=== PATIENT | female | born 1995 | race Caucasian/White ===

== ENCOUNTER 2017-01-04 23:28 | Emergency (ER) | payer OTHER ==
--- OUTSIDE RECORDS SUMMARY | 2017-01-05 00:07 | XMS REPORT | Continuity of Care Document ---
:1995 Author Organization [facility] ([facility]) Address [address] [place] [address] Phone [phone] Care Team Providers Name Role Phone Rachana Ba Primary Care Provider [phone] Source Comments This disclosure is being made pursuant to the Care Everywhere program, applicable federal and state laws, and may not contain all informaitonavailable regarding this patient.[facility] ([facility]) Active Allergies and Adverse Reactions Allergen Noted Date Severity Reactions Comments Bee Stings 11/08/2016 OTHER swelling Cephalexin 05/01/2016 Medium OTHER Severe heartburn Cephalexin 11/08/2016 OTHER Heartburn/Reflux Current Medications Prescription Sig. Disp. Refills Start Date End Date Status multivitamin Take 1 tablet by Active with minerals 27-0.8 mg mouth daily. tablet acetaminophen-codeine Take 1 tablet by Active 300-30 mg per tablet mouth every 4 hours as needed. PSYLLIUM SEED (WITH Take by mouth 2 Active SUGAR) (METAMUCIL PO) times daily as needed. ondansetron 4 mg Take 1 tablet (4 30 tablet 0 05/02/2016 Active disintegrating tablet mg total) by mouth every 8 hours as needed for Nausea/Vomiting. nitrofurantoin One capsule by 30 capsule 5 11/12/2016 Active macrocrystal mouth daily. (MACRODANTIN) 100 mg capsule multivitamin Take 1 tablet by Active with minerals 27-0.8 mg mouth daily. tablet ferrous sulfate 325 mg Take 325 mg by Active (65 mg iron) tablet mouth daily. fluticasone 50 Use 2 Sprays Active mcg/Actuation nasal into both spray nostrils 2 times daily. FLUoxetine 20 mg Take 20 mg by Active capsule mouth daily. metroNIDAZOLE 500 mg Take 500 mg by Active tablet mouth 2 times daily. Active Problems Problem Noted Date labor in third trimester 11/08/2016 Cholecystitis in , s/p lap archie 11/08/2016 Elevated LFTs 05/01/2016 Nausea and vomiting 05/01/2016 First trimester 05/01/2016 Currently Estimated Date of Delivery Comments Yes 01/07/2017 Based on Last Menstrual Period Most Recent Encounters Date Type Specialty Providers Description 11/12/2016 Refill Gynecology Sowmya, Dx: Recurrent UTI Kadie Bull MD (Primary Dx) 11/11/2016 Telephone Gynecology Savanah Joseph MD Chief Comp: Need Prior Authorization 11/10/2016 Hospital Encounter General Care Inpatient - Adult 11/08/2016 Hospital Encounter Pathology Carlos, Bahman Dx: Warm reactive MD Remberto antibody (Primary Dx) 11/08/2016 - Hospital Encounter General Care Su, Radha Khan MD Dx: labor in 11/10/2016 Inpatient - Adult Wei Ledesma third trimester MD Erin without delivery Karen Valle, (Primary Dx) 11/08/2016 Anesthesia Event General Care Javier Morrison, Inpatient - Adult Social History Tobacco Use Types Packs/Day Years Used Date Former Smoker Cigarettes Quit: 02/24/2016 Smokeless Tobacco: Never Used Alcohol Use Drinks/Week oz/Week Comments No Occasional Last Filed Vital Signs Vital Sign Reading Time Taken Blood Pressure 123/66 11/10/2016 8:47 AM [employer] Pulse 99 11/10/2016 8:47 AM [employer] Temperature 37.1 C (98.8 F) 11/10/2016 8:47 AM [employer] Respiratory Rate 16 11/10/2016 8:47 AM [employer] Height 1.575 m (5' 2") 11/08/2016 12:20 PM [employer] Weight 66.679 kg (147 lb) 11/08/2016 12:20 PM [employer] Body Mass Index 26.88 11/08/2016 12:20 PM [employer] Oxygen Saturation 96% 11/10/2016 8:47 AM [employer] Plan of Care Health Maintenance Due Date Last Done Comments Hepatitis B Vaccine (1 of 3 - Primary Series) 1993 HPV Vaccine (1 of 3 - Female/Unknown 3 Dose Series) 2004 Tdap Vaccine 2004 Cervical Cancer Screening 2011 Lipid Disorder Screening 2011 MMR Vaccine 2011 Td Vaccine 2011 Influenza Vaccine: Seasonal (#1) 06/21/2016 Results from Last 3 Months OB ULTRASOUND (LDR) (11/08/2016 4:02 PM) Narrative Obstetric Ultrasound Report Detailed Survey Ref[facility], [address] [place] [address] PATIENT INFORMATION: Name: MELI WILLIAMSON MR#: [id number] Age:21 y/oExam Date: 11/08/2016 :1995Visit #: 1 LMP:Not Available Location:Labor and Delivery # Fetuses: 1 INDICATION:PTL and vaginal bleeding, assess growth and anatomy. DATING: Assigned GA GA by LMPGA by US (CHRISTIANO)CHRISTIANO NA 31 2/7 wks 31 3/7 wks2/17/17 BIOMETRY: BPD: 81.2 mm32 4/7 wksHC:288.5 mm 31 5/7 wks(31%) (65%) Femur: 59.7 mm31 1/7 wksAC:274.7 mm 31 4/7 wks(49%) (41%) EFW: 1780 gms3 lbs 15 oz (57%) Lat Ventricles: 3.95 mmCisterna Magna: 8.84 mm Nasal Bone: PresentFetal Heart Rate: 130 bpm FL/AC:0.22 HL/BPD: 0.63 FL/BPD: 0.73 Humerus:51.4 mm30 0 (28%) PRESENTATION/CORD/PLACENTA/FLUID/CERVIX: Presentation: Cephalic Umbilical Cord: 3 Vessel Cord.Normal insertion into the placenta. Placenta: Anterior.There Is No Evidence Of Placenta Previa. Amniotic Fluid: Maximum Vertical Pocket=55 mm.Subjective AF Volume : Normal. (LTJ=978 mm) ANATOMICAL SURVEY: Normal ------ Lateral Ventricles Cerebellum Cisterna Magna Profile Palate Nose Lips Cervical Spine Thoracic Spine Lumbar Spine Sacrum Four Chamber View RVOT LVOT Aortic ArchCardiac Gila Cardiac Position Heart Rate Ductal ArchIVC SVC Diaphragm Ventral Wall Stomach Kidney - LeftKidney - Right Bladder Forearm - Left Forearm - RightLower Leg - Left Lower Leg - Right Suboptimal Hand - LeftHand - Right Foot - LeftFoot - Right Abnormal -------- None identified TARGETED CARDIAC: Ductal Arch: Normal IVC: Normal SVC: Normal MAIL MESSENGER FINDINGS: Ovaries:Left:Not Seen Right: Normal EFW Summary Table Exam DateFetus #EFW Percentile ------ - 11/08/16 [id number] % AMNIOTIC FLUID VOLUME: NORMALTotal KAPIL: 197 mm.Subjective AF Volume: Normal. Maximum Vertical Pocket:55 mm CERVIX: Suboptimal visualization COMMENTS: I attest to having personally viewed the images and my comments and impression are as follows: The exam was limited due to the late gestational age. IUP consistent with given CHRISTIANO. Within the limits of ultrasound, no structural anomalies were seen. Appropriate amniotic fluid. Suboptimal views due to late gestational age. Devon Sheppard MD ([id number]) Doctor Of Optometry: Jennifer Rodarte RDMS,RVT Procedure Note Miguel, Incoming Imaging Results - TueNov 10, 2016 11:42 AM [employer] Obstetric Ultrasound Report Detailed Survey Referral from: Dr. Ashly Cooper [facility] Department of Obstetrics &Gynecology [facility], [address] [place] [address] PATIENT INFORMATION: Name: MELI WILLIAMSON MR#: [id number] Age: 21 y/o Exam Date: 11/08/2016 : 1995 Visit #: 1 LMP: Not Available Location: Labor and Delivery # Fetuses: 1 INDICATION: PTL and vaginal bleeding, assess growth and anatomy. DATING: Assigned GA GA by LMP GA by US (CHRISTIANO) CHRISTIANO NA 31 2/7 wks 31 3/7 wks 01/07/17 BIOMETRY: BPD: 81.2 mm 32 4/7 wks HC: 288.5 mm 31 5/7 wks(31%) (65%) Femur: 59.7 mm 31 1/7 wks AC: 274.7 mm 31 4/7 wks(49%) (41%) EFW: 1780 gms 3 lbs 15 oz(57%) Lat Ventricles: 3.95 mm Cisterna Magna: 8.84 mm Nasal Bone: Present Heart Rate: 130 bpm FL/AC: 0.22 HL/BPD: 0.63 FL/BPD: 0.73 Humerus: 51.4 mm 300 (28%) PRESENTATION/CORD/PLACENTA/FLUID/CERVIX: Presentation: Cephalic Umbilical Cord: 3 Vessel Cord. Normal insertion into the placenta. Placenta: Anterior. There Is No Evidence Of Placenta Previa. Amniotic Fluid: Maximum Vertical Pocket=55 mm. Subjective AFVolume: Normal. (ZLC=929 mm) ANATOMICAL SURVEY: Normal ------ Lateral Ventricles Cerebellum Cisterna Magna Profile Palate Nose Lips Cervical Spine Thoracic Spine Lumbar Spine Sacrum Four Chamber View RVOT LVOT Aortic Arch Cardiac Gila Cardiac Position Heart Rate Ductal Arch IVC SVC Diaphragm Ventral Wall Stomach Kidney - Left Kidney - Right Bladder Forearm - Left Forearm - Right Lower Leg - Left Lower Leg - Right Suboptimal Hand - Left Hand - Right Foot - Left Foot - Right Abnormal -------- None identified TARGETED CARDIAC: Ductal Arch: Normal IVC: Normal SVC: Normal MAIL MESSENGER FINDINGS: Ovaries: Left: Not Seen Right: Normal EFW Summary Table Exam Date Fetus # EFW Percentile --------- ------- ---- 11/08/16 1 1780 57 % AMNIOTIC FLUID VOLUME: NORMAL Total KAPIL: 197 mm. Subjective AF Volume: Normal. Maximum Vertical Pocket: 55 mm CERVIX: Suboptimal visualization COMMENTS: I attest to having personally viewed the images and my comments and impression are as follows: The exam was limited due to the late gestational age. IUP consistent with given CHRISTIANO. Within the limits of ultrasound, no structural anomalies were seen. Appropriate amniotic fluid. Suboptimal views due to late gestational age. Devon Sheppard MD ([id number]) Doctor Of Optometry: Jennifer Rodarte RDIL,RVT CREATININE (11/08/2016 12:11 PM) Component Value Range Creatinine 0.6Comment: 0.5-1.0 mg/dL Creatinine switched to enzymatic method on 03/30/2011.GFR equation switched to IDMS-traceable MDRD equation on 03/30/2011. Calculated GFR values are not valid in clinical settings where serum creatinine is changing. Calculated GFR >90 >60 mL/min/1.73 m2 Specimen Blood FIBRINOGEN (11/08/2016 12:11 PM) Component Value Range Fibrinogen 576(H) 180-400 mg/dL Specimen Blood PTT (PARTIAL THROMBOPLASTIN TIME) (11/08/2016 12:11 PM) Component Value Range PTT 21(L) 22-31 secs Specimen Blood PT/INR (PROTHROMBIN TIME/INR) VENOUS (11/08/2016 12:11 PM) Component Value Range PT (Prothrombin Time) 9 9-12 secs INR 0.9 <4.0 Specimen Blood ANTIBODY PANEL INTERPRETATION (11/08/2016 11:44 AM) Component Value Range Antibody Identification Anti-D due to RhIg Specimen Blood TYPE AND SCREEN (BLOOD TYPE(ABORH) AND RBC ANTIBODY SCREEN) (11/08/2016 11:44 AM ) Component Value Range ABORH O Negative Specimen Expiration Date 2016-11-11 Antibody Screen Positive Specimen Blood GROUP B STREPTOCOCCUS PCR (11/08/2016 11:42 AM) Component Value Range GRPBPCR Negative Negative Specimen Vaginal/Rectal Narrative Test methodology:Nucleic acid amplification; illumigene Assay ([employer]) The performance characteristics of this test were determined by the [facility].It has not been cleared or approved by the U.S. Food and DrugAdministration (FDA). The FDA has determined that such clearance or approval is not necessary.This test is for clinical purposes.It should not be regarded as investigational or for research. The laboratory is certified under the Clinical Laboratory Improvement Amendments of 1988 (CLIA) as qualified to perform high complexity clinical laboratory testing. NEISSERIA GONORRHOEAE PCR (11/08/2016 11:42 AM) Component Value Range Gonorrhea PCR Negative Negative Specimen Other - Urine, Midstream clean catch Narrative Test methodology:PCR amplification; CT/NG Assay ([employer]) CHLAMYDIA TRACHOMATIS DETECTION BY PCR (11/08/2016 11:42 AM) Component Value Range Chlamydia Trach PCR Negative Negative Specimen Other - Urine, Midstream clean catch Narrative Test methodology:PCR amplification; CT/NG Assay ([employer]) CBC (COMPLETE BLOOD COUNT) (11/08/2016 11:33 AM) Component Value Range WBC Count 11.1(H) 3.7-10.5 K/MM3 RBC Count 3.43(L) 4.00-5.20 M/MM3 Hemoglobin 10.9(L) 11.9-15.5 g/dL Hematocrit 32(L) 35-47 % MCV (Mean Corpuscular Volume) 94 82-99 FL MCH (Mean Corpuscular Hemoglobin) 32 25-35 PG MCHC (Mean Corpuscular Hemoglobin Concentration) 34 32-36 % Platelet Count 339 150-400 K/MM3 MPV (Mean Platelet Volume) 11.0 9.4-12.3 FL RBC Dist Width-STD 44.9 36.4-46.3 FL RBC Distrib Width 13.2 9.0-14.5 % Nucleated RBC 0 /100 WBC Specimen Whole Blood MICROSCOPIC URINALYSIS (11/08/2016 11:32 AM) Component Value Range White Blood Cells, Urine 2 0-5 /HPF Red Blood Cells, Urine <1 0-2 /HPF Mucous-Urine Rare None, Rare Specimen Urine URINALYSIS WITH REFLEX CULTURE (11/08/2016 11:32 AM) Component Value Range Color, Urine Yellow Straw, Pale Yellow, Yellow, Clear, None Clarity, Urine Clear Clear pH, Urine 7.0 <9.0 Spec [place], Urine 1.010 1.000-1.030 Glucose, Urine Negative Negative Blood, Urine 3+(A) Negative Ketones, Urine 1+(A) Negative Protein, Urine Negative Negative Urobilinogen, Urine Normal Normal Bilirubin, Urine Negative Negative Leukocyte Esterase, Urine Trace(A) Negative Nitrite, Urine Negative Negative Specimen Urine DRUGS OF ABUSE - URINE (11/08/2016 11:32 AM) Component Value Range Amphetamines, Urine NegativeComment: Negative Test cut-off: 1000 ng/mL for d-methamphetamine. Benzodiazepine, Urine NegativeComment: Negative Test cut-off:100 ng/mL Cocaine, Urine NegativeComment: Negative Test cut-off:300 ng/mL Opiate, Urine NegativeComment: Negative Test cut-off:300 ng/mL for morphine Oxycodone, Urine NegativeComment: Negative Test cut-off:300 ng/mL Amphetamines assay cross-reacts well with amphetamine and methamphetamine, as well as the "ux ui designer" amphetamines MDMA ("Ecstasy"), MDA, MDEA ("Gracie"), and MBDB. Labetalol may also produce false positi ves due to cross-reactivity of a metabolite.The amphetamines assay has little or no cross-reactivity with ephedrine, pseudoephedrine, phentermine, and methylphenidate. Opiates assay has low cross-reac tivity for buprenorphine, fentanyl, meperidine, methadone, oxycodone, and propoxyphene (all have cut-offs greater than 75,000 ng/mL). Please see Laboratory Services Handbook (http://healthcare.[facility]/path_ handbook.index.html) for more detailed information on assay cross-reactivity. Drug of abuse screening tests are to be used for medical purposes only and not for non-medical purposes (e.g., employee, phys ther, or forensic testing). Specimen Urine URINALYSIS WITH REFLEXED CULTURE AND MICROSCOPIC EXAM (11/08/2016 11:32 AM) Specimen Culture - Urine, Midstream clean catch Narrative The following orders were created for panel order URINALYSIS WITH REFLEXED CULTURE AND MICROSCOPIC EXAM. Procedure Abnormality Status --------- ------ URINALYSIS WITH REFLEX C...[[id number]]AbnormalFinal result MICROSCOPIC URINALYSIS[[id number]] Normal Final result URINE CULTURE, REFLEXED[[id number]]Normal Final result Please view results for these tests on the individual orders. URINE CULTURE, REFLEXED (11/08/2016 11:32 AM) Component Value Range Quantitative Culture No growth at 11/999 dilution Specimen Culture - Urine, Midstream clean catch
--- OUTSIDE RECORDS SUMMARY | 2017-01-05 00:08 | XMS REPORT | Summary of Care ---
:1995 Author Organization [facility] Address [address] [place] [address] Care Team Providers Name Role Phone Ashly Cooper Primary Care Physician Encounter Date(s): 12/10/16 - 12/10/16 [facility], [address] [place], [place] [address] Discharge Diagnosis: 36 weeks gestation of Discharge Disposition: Discharged to Home or Self Care Attending Physician: Ashly Cooper MD Referring Physician: Ashly Cooper MD Vital Signs Most recent to oldest [Reference Range]: 1 Peripheral Pulse Rate [60-100 bpm] 75 bpm (12/10/16 9:51 AM) Blood Pressure [90-130/60-90 mmHg] 101/64mmHg (12/10/16 9:51 AM) Mean Arterial Pressure, Cuff 76 mmHg (12/10/16 9:51 AM) Weight Dosing 65.80 kg1 (12/10/16 9:52 AM) Weight Measured 65.8 kg (12/10/16 9:51 AM) 1Result Comment: This result was because the dosing weight was either not entered or it is>30 days old. This result is based off: Weight Measured December 10, 2016 09:51:00 [employer] by Liat Valiente CMA Problem List Condition Effective Dates Status Health Status Informant Anxiety disorder(Confirmed) Active Kidney stones(Confirmed) Active (Confirmed) 04/02/16 Active (Confirmed) < 02/2016 Resolved Allergies, Adverse Reactions, Alerts Substance Reaction Severity Status Bee Stings swelling/edema Active cephalexin1 Acid reflux Active 1Does fine with PCN and amoxicillin Medications Augmentin 875 mg-125 mg oral tablet 875 mg, Oral, q12hr interval, # 20 tab(s), 0 Refill(s), Start Date: 11/16/16 17: 08:00 [facility] [employer] [facility], Pharmacy: [facility] [id number] Start Date: 11/16/16 Stop Date: 11/27/16 Status: CompletedEpiPen 2-Junior 0.3 mg injectable kit 0.3 mg, IM, ONETIME, # 1 kit(s), 0 Refill(s), Start Date: 05/18/16 13:16:00 CDT , Pharmacy: [facility] [id number] Start Date: 05/18/16 Status: Orderedferrous sulfate 325 mg (65 mg elemental iron) oral delayed release tablet 1 tab(s), Oral, Daily, # 30 tab(s), 8 Refill(s), Start Date: 10/21/16 13:43:00 [facility] [employer], Pharmacy: [facility] [id number] Start Date: 10/21/16 Status: OrderedFlagyl 500 mg oral tablet 1 tab(s), Oral, q12hr, # 14 tab(s), 0 Refill(s), Start Date: 11/05/16 11:10:00 [employer] [employer], Pharmacy: [facility] [id number] Start Date: 11/05/16 Stop Date: 11/16/16 Status: CompletedFlonase 50 mcg/inh nasal spray 2 spray(s), Nasal, BID, # 16 gm, 0 Refill(s), Start Date: 10/26/16 16:24:00 [employer] [employer] , Pharmacy: [facility] [id number] Start Date: 10/26/16 Stop Date: 11/16/16 Status: CompletedFLUoxetine 30 mg, Oral, HS, 0 Refill(s), Start Date: 04/14/16 13:07:00 CDT Start Date: 04/14/16 Stop Date: 05/18/16 Status: DiscontinuedFLUoxetine 20 mg oral tablet 1 tab(s), Oral, Daily, # 30 tab(s), 2 Refill(s), Start Date: 08/25/16 14:00:00 CDT, Pharmacy: [facility] [id number] Start Date: 08/25/16 Stop Date: 12/03/16 Status: CompletedFLUoxetine 20 mg oral tablet 1 tab(s), Oral, Daily, # 30 tab(s), 2 Refill(s), Start Date: 12/03/16 10:33:18 [facility] [employer], Pharmacy: [facility] [id number] Start Date: 12/03/16 Status: Orderedloratadine 10 mg oral tablet 1 tab(s), Oral, Daily, # 10 tab(s), 0 Refill(s), Start Date: 10/26/16 16:24:00 [facility] [employer], Pharmacy: [facility] [id number] Start Date: 10/26/16 Stop Date: 11/16/16 Status: CompletedMacrobid 100 mg oral capsule 1 cap(s), Oral, BID, X 5 days, # 10 cap(s), 0 Refill(s), Start Date: 06/03/16 23 :02:00 CDT Start Date: 06/03/16 Stop Date: 06/08/16 Status: CompletedMacrobid 100 mg oral capsule 1 cap(s), Oral, BID, # 14 cap(s), 0 Refill(s), Start Date: 07/02/16 15:50:00 CDT , Pharmacy: [facility] [id number] Start Date: 07/02/16 Stop Date: 07/16/16 Status: DiscontinuedNIFEdipine 10 mg oral capsule 1 cap(s), Oral, q4hr, PRN other (see comment), # 90 cap(s), 0 Refill(s), Start Date: 11/16/16 17:08:00 [facility] [employer], Pharmacy: [facility] [id number] Start Date: 11/16/16 Status: OrderedPercocet 7.5/325 oral tablet 1 tab(s), Oral, q4hr, PRN for pain, # 16 tab(s), 0 Refill(s), Start Date: 15:02:00 CDT Start Date: 02/03/16 Stop Date: 02/05/16 Status: CompletedPrenatal Multivitamins 1 TAB, Oral, Daily, 0 Refill(s), Start Date: 04/27/16 10:54:00 CDT Start Date: 04/27/16 Status: OrderedTerazol 3 vaginal cream 1 rosario, Vaginal, HS, X 3 days, # 20 gm, 0 Refill(s), Start Date: 10/08/16 10:49: 00 [facility] [employer] [facility], Pharmacy: [facility] [id number] Start Date: 10/08/16 Stop Date: 10/11/16 Status: CompletedtraZODone 50 mg oral tablet 1 tab(s), Oral, HS, PRN for insomnia, # 30 tab(s), 0 Refill(s), Start Date: 13:07:00 CDT Start Date: 04/14/16 Stop Date: 05/18/16 Status: DiscontinuedTylenol with Codeine #3 oral tablet 1 tab(s), Oral, q4hr interval, PRN pain moderate 4-7, X 5 days, # 30 tab(s), 0 Refill(s), Start Date: 04/27/16 14:48:00 CDT, Pharmacy: [facility] [id number] Start Date: 04/27/16 Stop Date: 05/02/16 Status: CompletedZantac 150 oral tablet 1 tab(s), Oral, BID, # 60 tab(s), 1 Refill(s), Start Date: 11/05/16 10:53:00 [employer] , Pharmacy: [facility] [id number] Start Date: 11/05/16 Status: Ordered Results No data available for this section Immunizations Given and Recorded Vaccine Date Status Refusal Reason tetanus/diphth/pertuss (Tdap) adult/adol 10/08/16 Given influenza virus vaccine, inactivated 09/10/16 Given Procedures Procedure Date Related Diagnosis Body Site Cholecystectomy Laparoscopic1 04/27/16 Tonsillectomy and adenoidectomy 2009 1auto-populated from documented surgical case Social History No data available for this section Assessment and Plan No data available for this section
--- OUTSIDE RECORDS SUMMARY | 2017-01-05 00:08 | XMS REPORT | Summary of Care ---
:1995 Author Organization [facility] Address [address] [place] [address]- Care Team Providers Name Role Phone MarcianobiancaRachana Primary Care Physician Encounter Date(s): 04/13/16 - 04/13/[address] [address] Final: Other cholelithiasis without obstruction Final: Other specified diseases of biliary tract Discharge Disposition: 01 Discharged to Home or Self Care Attending Physician: Dylan Ellison DO Admitting Physician: Dylan Ellison DO Vital Signs No data available for this section Problem List Condition Effective Dates Status Health Status Informant Anxiety disorder(Confirmed) Active Kidney stones(Confirmed) Active Allergies, Adverse Reactions, Alerts Substance Reaction Severity Status cephalexin Acid reflux Active Medications FLUoxetine 30 mg, Oral, HS, 0 Refill(s), Start Date: 04/14/16 13:07:00 CDT Start Date: 04/14/16 Status: OrderedPercocet 7.5/325 oral tablet 1 tab(s), Oral, q4hr, PRN for pain, # 16 tab(s), 0 Refill(s), Start Date: 15:02:00 CDT Start Date: 02/03/16 Stop Date: 02/05/16 Status: CompletedPrenatal Multivitamins 1 TAB, Oral, Daily, 0 Refill(s), Start Date: 04/27/16 10:54:00 CDT Start Date: 04/27/16 Status: OrderedtraZODone 50 mg oral tablet 1 tab(s), Oral, HS, PRN for insomnia, # 30 tab(s), 0 Refill(s), Start Date: 13:07:00 CDT Start Date: 04/14/16 Status: OrderedTylenol with Codeine #3 oral tablet 1 tab(s), Oral, q4hr interval, PRN pain moderate 4-7, X 5 days, # 30 tab(s), 0 Refill(s), Start Date: 04/27/16 14:48:00 CDT, Pharmacy: [facility] [id number] Start Date: 04/27/16 Stop Date: 05/02/16 Status: Completed Results No data available for this section Immunizations No data available for this section Procedures Procedure Date Related Diagnosis Body Site Cholecystectomy Laparoscopic1 04/27/16 Tonsillectomy and adenoidectomy 2009 1auto-populated from documented surgical case Social History No data available for this section Assessment and Plan No data available for this section
--- OUTSIDE RECORDS SUMMARY | 2017-01-05 00:08 | XMS REPORT | Summary of Care ---
:1995 Author Organization [facility] Address [address] [place] [phone]- Care Team Providers Name Role Phone Ashly Cooper Primary Care Physician Encounter Date(s): 12/11/16 - 12/12/[address] [address]- [facility] Discharge Disposition: 01 Discharged to Home or Self Care Attending Physician: Nakita Marks MD Vital Signs Most recent to oldest 1 2 3 [Reference Range]: Temperature Temporal Artery 36.8 DegC [36-38 DegC] (12/11/16 11:00 PM) Heart Rate Monitored [60-100 83 bpm 56 bpm 80 bpm bpm] (12/12/16 6:00 AM) *LOW* (12/11/16 11:00 PM) (12/12/16 1:50 AM) Respiratory Rate [12-20 16 br/min 18 br/min br/min] (12/12/16 1:08 AM) (12/11/16 11:00 PM) SpO2 98 % (12/11/16 11:00 PM) Blood Pressure [90-130/60-90 104/67mmHg 110/74mmHg 126/76mmHg mmHg] (12/12/16 6:00 AM) (12/12/16 1:50 AM) (12/11/16 11:00 PM) Mean Arterial Pressure, Cuff 79 mmHg 86 mmHg 93 mmHg (12/12/16 6:00 AM) (12/12/16 1:50 AM) (12/11/16 11:00 PM) Problem List Condition Effective Dates Status Health [...] 0 Refill(s), Start Date: 11/16/16 17: 08:00 MANAGER CLINICAL, Pharmacy: [facility] [id number] Start Date: 11/16/16 Stop Date: 11/27/16 Status: CompletedEpiPen 2-Junior 0.3 mg injectable kit 0.3 mg, IM, ONETIME, # 1 kit(s), 0 Refill(s), Start Date: 05/18/16 13:16:00 CDT , Pharmacy: [facility] [id number] Start Date: 05/18/16 Status: Orderedferrous sulfate 325 mg (65 mg elemental iron) oral delayed release tablet 1 tab(s), Oral, Daily, # 30 tab(s), 8 Refill(s), Start Date: 10/21/16 13:43:00 MANAGER CLINICAL, Pharmacy: [facility] [id number] Start Date: 10/21/16 Status: OrderedFlagyl 500 mg oral tablet 1 tab(s), Oral, q12hr, # 14 tab(s), 0 Refill(s), Start Date: 11/05/16 11:10:00 MANAGER CLINICAL, Pharmacy: [facility] [id number] Start Date: 11/05/16 Stop Date: 11/16/16 Status: CompletedFlonase 50 mcg/inh nasal spray 2 spray(s), Nasal, BID, # 16 gm, 0 Refill(s), Start Date: 10/26/16 16:24:00 MANAGER CLINICAL , Pharmacy: [facility] [id number] Start Date: 10/26/16 Stop Date: 11/16/16 Status: CompletedFLUoxetine 30 mg, Oral, HS, 0 Refill(s), Start Date: 04/14/16 13:07:00 CDT Start Date: 04/14/16 Stop Date: 05/18/16 Status: DiscontinuedFLUoxetine 20 mg oral tablet 1 tab(s), Oral, Daily, # 30 tab(s), 2 Refill(s), Start Date: 08/25/16 14:00:00 CDT, Pharmacy: [facility] [id number] Start Date: 08/25/16 Stop Date: 12/03/16 Status: CompletedFLUoxetine 20 mg oral tablet 1 tab(s), Oral, Daily, # 30 tab(s), 2 Refill(s), Start Date: 12/03/16 10:33:18 MANAGER CLINICAL, Pharmacy: [facility] [id number] Start Date: 12/03/16 Status: Orderedloratadine 10 mg oral tablet 1 tab(s), Oral, Daily, # 10 tab(s), 0 Refill(s), Start Date: 10/26/16 16:24:00 MANAGER CLINICAL, [id number] Start Date: 10/26/16 Stop Date: 11/16/16 Status: CompletedMacrobid 100 mg oral capsule 1 cap(s), Oral, BID, X 5 days, # 10 cap(s), 0 Refill(s), Start Date: 06/03/16 23 :02:00 CDT Start Date: 06/03/16 Stop Date: 06/08/16 Status: CompletedMacrobid 100 mg oral capsule 1 cap(s), Oral, BID, # 14 cap(s), 0 Refill(s), Start Date: 07/02/16 15:50:00 CDT , Pharmacy: [facility] [id number] Start Date: 07/02/16 Stop Date: 07/16/16 Status: DiscontinuedNIFEdipine 10 mg oral capsule 1 cap(s), Oral, q4hr, PRN other (see comment), # 90 cap(s), 0 Refill(s), Start Date: 11/16/16 17:08:00 MANAGER CLINICAL, [id number] Start Date: 11/16/16 Status: OrderedPercocet 7.5/325 oral [...] 0 Refill(s), Start Date: 10/08/16 10:49: 00 MANAGER CLINICAL, Pharmacy: [facility] [id number] Start Date: 10/08/16 Stop Date: 10/11/16 Status: [...] Refill(s), Start Date: 04/27/16 14:48:00 CDT, Pharmacy: [facility] [id number] Start Date: 04/27/16 Stop Date: 05/02/16 Status: CompletedZantac 150 oral tablet 1 tab(s), Oral, BID, # 60 tab(s), 1 Refill(s), Start Date: 11/05/16 10:53:00 MANAGER CLINICAL , Pharmacy: [facility] [id number] Start Date: 11/05/16 Status: Ordered Results No [...]
--- OUTSIDE RECORDS SUMMARY | 2017-01-05 00:09 | XMS REPORT | Summary of Care ---
:1995 Author Organization [facility] Address [address] [place] [phone]- Care Team Providers Name Role Phone Ashly Cooper Primary Care Physician Encounter Date(s): 12/16/16 - 12/16/[address] [address]- [facility] Discharge Disposition: 01 Discharged to Home or Self Care Attending Physician: Nakita Marks MD Admitting Physician: Remberto Figueroa Vital Signs Most recent to oldest [Reference Range]: 1 2 Temperature Temporal Artery [36.0-38.0 DegC] 37.1 DegC (12/16/16 9:30 PM) Peripheral Pulse Rate [60-100 bpm] 90 bpm (12/16/16 9:30 PM) Heart Rate Monitored [60-100 bpm] 76 bpm 90 bpm (12/16/16 10:30 PM) (12/16/16 9:30 PM) Respiratory Rate [12-20 br/min] 18 br/min 18 br/min (12/16/16 10:30 PM) (12/16/16 9:30 PM) Blood Pressure [90-130/60-90 mmHg] 106/60mmHg 116/69mmHg (12/16/16 10:30 PM) (12/16/16 9:30 PM) Mean Arterial Pressure, Cuff 75 mmHg 85 mmHg (12/16/16 10:30 PM) (12/16/16 9:30 PM) Problem List Condition Effective Dates Status [...] 0 Refill(s), Start Date: 11/16/16 17: 08:00 OPERATIONS ADMINISTRATOR, Pharmacy: [facility] [id number] Start Date: 11/16/16 Stop Date: 11/27/16 Status: CompletedEpiPen 2-Junior 0.3 mg injectable kit 0.3 mg, IM, ONETIME, # 1 kit(s), 0 Refill(s), Start Date: 05/18/16 13:16:00 CDT , Pharmacy: [facility] [id number] Start Date: 05/18/16 Status: Orderedferrous sulfate 325 mg (65 mg elemental iron) oral delayed release tablet 1 tab(s), Oral, Daily, # 30 tab(s), 8 Refill(s), Start Date: 10/21/16 13:43:00 OPERATIONS ADMINISTRATOR, Pharmacy: [facility] [id number] Start Date: 10/21/16 Status: OrderedFlagyl 500 mg oral tablet 1 tab(s), Oral, q12hr, # 14 tab(s), 0 Refill(s), Start Date: 11/05/16 11:10:00 OPERATIONS ADMINISTRATOR, Pharmacy: [facility] [id number] Start Date: 11/05/16 Stop Date: 11/16/16 Status: CompletedFlonase 50 mcg/inh nasal spray 2 spray(s), Nasal, BID, # 16 gm, 0 Refill(s), Start Date: 10/26/16 16:24:00 OPERATIONS ADMINISTRATOR , Pharmacy: [facility] [id number] Start Date: 10/26/16 Stop Date: 11/16/16 Status: CompletedFLUoxetine 30 mg, Oral, HS, 0 Refill(s), Start Date: 04/14/16 13:07:00 CDT Start Date: 04/14/16 Stop Date: 05/18/16 Status: DiscontinuedFLUoxetine 20 mg oral tablet 1 tab(s), Oral, Daily, # 30 tab(s), 2 Refill(s), Start Date: 08/25/16 14:00:00 CDT, Pharmacy: [facility] [id number] Start Date: 08/25/16 Stop Date: 12/03/16 Status: CompletedFLUoxetine 20 mg oral tablet 1 tab(s), Oral, Daily, # 30 tab(s), 2 Refill(s), Start Date: 12/03/16 10:33:18 OPERATIONS ADMINISTRATOR, Pharmacy: [facility] [id number] Start Date: 12/03/16 Status: Orderedloratadine 10 mg oral tablet 1 tab(s), Oral, Daily, # 10 tab(s), 0 Refill(s), Start Date: 10/26/16 16:24:00 OPERATIONS ADMINISTRATOR, Pharmacy: [facility] [id number] Start Date: 10/26/16 Stop Date: 11/16/16 Status: CompletedMacrobid 100 mg oral capsule 1 cap(s), Oral, BID, X 5 days, # 10 cap(s), 0 Refill(s), Start Date: 06/03/16 23 :02:00 CDT Start Date: 06/03/16 Stop Date: 06/08/16 Status: CompletedMacrobid 100 mg oral capsule 1 cap(s), Oral, BID, # 14 cap(s), 0 Refill(s), Start Date: 07/02/16 15:50:00 CDT , Pharmacy: [facility] [id number] Start Date: 07/02/16 Stop Date: 07/16/16 Status: DiscontinuedNIFEdipine 10 mg oral capsule 1 cap(s), Oral, q4hr, PRN other (see comment), # 90 cap(s), 0 Refill(s), Start Date: 11/16/16 17:08:00 OPERATIONS ADMINISTRATOR, Pharmacy: [facility] [id number] Start Date: 11/16/16 Status: OrderedPercocet 7.5/325 oral [...] 0 Refill(s), Start Date: 10/08/16 10:49: 00 OPERATIONS ADMINISTRATOR, Pharmacy: [facility] [id number] Start Date: 10/08/16 Stop Date: 10/11/16 Status: [...] Refill(s), Start Date: 04/27/16 14:48:00 CDT, Pharmacy: [facility] [id number] Start Date: 04/27/16 Stop Date: 05/02/16 Status: CompletedZantac 150 oral tablet 1 tab(s), Oral, BID, # 60 tab(s), 1 Refill(s), Start Date: 11/05/16 10:53:00 OPERATIONS ADMINISTRATOR , Pharmacy: [facility] [id number] Start Date: 11/05/16 Status: Ordered Results No [...]
--- OUTSIDE RECORDS SUMMARY | 2017-01-05 00:09 | XMS REPORT | Summary of Care ---
:1995 Author Organization [facility] Address [address] [place] [id number]- Care Team Providers Name Role Phone Rachana Ba Primary Care Physician Encounter Date(s): 04/12/16 - 04/13/[address] [address]- [facility] Discharge Diagnosis: Abdominal pain Discharge Disposition: Discharged to Home or Self Care Attending Physician: Dylan Ellison DO Admitting Physician: Dylan Ellison DO Vital Signs Most recent to oldest [Reference Range]: 1 2 Temperature Temporal Artery [36.5-38 DegC] 36.4 DegC *LOW* (04/13/16 12:13 AM) Temperature Temporal Artery [36.5-38.0 DegC] 36.8 DegC (04/12/16 10:40 PM) Heart Rate Monitored [60-100 bpm] 70 bpm 67 bpm (04/13/16 12:13 AM) (04/12/16 10:40 PM) Respiratory Rate [12-20 br/min] 16 br/min 16 br/min (04/13/16 12:13 AM) (04/12/16 10:40 PM) SpO2 100 % 99 % (04/13/16 12:13 AM) (04/12/16 10:40 PM) Blood Pressure [90-130/60-90 mmHg] 125/72mmHg 115/66mmHg (04/13/16 12:13 AM) (04/12/16 10:40 PM) Most recent to oldest [Reference Range]: 1 2 Weight Estimated 59 kg (04/12/16 10:40 PM) Weight Dosing 59.00 kg1 (04/12/16 10:42 PM) 1Result Comment: This result was because the dosing weight was either not entered or it is>30 days old. This result is based off: Weight Estimated April 12, 2016 22:40:00 CDT by Mayte Smallwood Problem List Condition Effective Dates Status Health [...] Refill(s), Start Date: 04/27/16 14:48:00 CDT, Pharmacy: [facility] [id number] Start Date: 04/27/16 Stop Date: 05/02/16 Status: Completed Results Patient Viewable Results Most recent to oldest [Reference Range]: 1 WBC [4.8-10.8 thou/mm3] 10.1 thou/mm3 (04/12/16 10:56 PM) RBC [4.20-5.40 Mil/mm3] 3.81 Mil/mm3 *LOW* (04/12/16 10:56 PM) Hgb [12.0-16.0 g/dL] 12.0 g/dL (04/12/16 10:56 PM) Hct [37.0-47.0 %] 36.4 % *LOW* (04/12/16 10:56 PM) MCV [80.0-94.0 fL] 95.5 fL *HI* (04/12/16 10:56 PM) MCH [25.0-38.0 pg/cell] 31.5 pg/cell (04/12/16 10:56 PM) MCHC [31.0-37.0 g/dL] 33.0 g/dL (04/12/16 10:56 PM) RDW [1.0-48.0 fL] 45.8 fL (04/12/16 10:56 PM) Platelet [130-400 thou/mm3] 324 thou/mm3 (04/12/16 10:56 PM) Neutrophils % Auto [50.0-75.0 %] 51.3 % (04/12/16 10:56 PM) Immature Granulocyte Auto [0.1-2.0 %] 0.2 % (04/12/16 10:56 PM) Lymphocytes % Auto [15.0-41.0 %] 38.8 % (04/12/16 10:56 PM) Monocytes % Auto [2.0-10.0 %] 8.2 % (04/12/16 10:56 PM) Eosinophils % Auto [0.0-6.0 %] 1.2 % (04/12/16 10:56 PM) Basophil % Auto [0.0-1.0 %] 0.3 % (04/12/16 10:56 PM) Neutrophils Absolute [1.5-5.9 thou/mm3] 5.2 thou/mm3 (04/12/16 10:56 PM) Immature Gran Absolute [0.01-0.03 thou/mm3] 0.02 thou/mm3 (04/12/16 10:56 PM) Lymphocytes Absolute [1.5-4.0 thou/mm3] 3.9 thou/mm3 (04/12/16 10:56 PM) Monocytes Absolute [0.0-0.9 thou/mm3] 0.8 thou/mm3 (04/12/16 10:56 PM) Eosinophil Absolute [0.0-0.7 thou/mm3] 0.1 thou/mm3 (04/12/16 10:56 PM) Basophil Absolute [0.0-0.2 thou/mm3] 0.0 thou/mm3 (04/12/16 10:56 PM) Sodium Lvl [135-144 mEq/L] 139 mEq/L (04/12/16 10:56 PM) Potassium Lvl [3.3-4.8 mEq/L] 4.6 mEq/L (04/12/16 10:56 PM) Chloride Lvl [98-107 mEq/L] 103 mEq/L (04/12/16 10:56 PM) Bicarbonate Lvl [22-30 mmol/L] 29 mmol/L (04/12/16 10:56 PM) Anion Gap [10.0-20.0] 11.6 (04/12/16 10:56 PM) Glucose Lvl [70-108 mg/dL] 111 mg/dL *HI* (04/12/16 10:56 PM) BUN [7-21 mg/dL] 10 mg/dL (04/12/16 10:56 PM) Creatinine Lvl [0.50-1.20 mg/dL] 0.69 mg/dL (04/12/16 10:56 PM) BUN/Creat Ratio 14.5 *NA* (04/12/16 10:56 PM) eGFR AA [>=60] >60 (04/12/16 10:56 PM) eGFR SANDRA [>=60] >60 (04/12/16 10:56 PM) Calcium Lvl [8.6-10.2 mg/dL] 9.0 mg/dL (04/12/16 10:56 PM) Total Protein [6.4-8.3 g/dL] 6.3 g/dL *LOW* (04/12/16 10:56 PM) Albumin Lvl [3.5-5.2 g/dL] 3.7 g/dL (04/12/16 10:56 PM) Globulin 2.6 *NA* (04/12/16 10:56 PM) A/G Ratio [0.9-1.8] 1.4 (04/12/16 10:56 PM) Bilirubin Total [0.1-1.0 mg/dL] 0.4 mg/dL (04/12/16 10:56 PM) Alkaline Phosphatase [39-129 unit/L] 64 unit/L (04/12/16 10:56 PM) AST [0-39 unit/L] 24 unit/L (04/12/16 10:56 PM) ALT [0-40 unit/L] 20 unit/L (04/12/16 10:56 PM) Lipase Lvl [13-60 unit/L] 26 unit/L (04/12/16 10:56 PM) UA Color LT YELLOW *NA* (04/12/16 11:45 PM) Urine Clarity [Clear] Clear (04/12/16 11:45 PM) Specific [place] [1.001-1.020] 1.012 (04/12/16 11:45 PM) Urine pH [5.0-7.0] 5.5 (04/12/16 11:45 PM) Ketones [Negative] Negative (04/12/16 11:45 PM) Bilirubin [Negative] Negative (04/12/16 11:45 PM) Urine Protein [Negative] Negative (04/12/16 11:45 PM) Glucose [Negative] Negative (04/12/16 11:45 PM) Urine HGB [Negative] Negative (04/12/16 11:45 PM) Urobilinogen [< 2.0 mg/dL] <2.0 *NA* (04/12/16 11:45 PM) Nitrite [Negative] Negative (04/12/16 11:45 PM) Leuk Esterase [Negative] 2+ *ABN* (04/12/16 11:45 PM) Urine WBC [0-5] 0-5 (04/12/16 11:45 PM) Urine RBC [0-2] 0-2 (04/12/16 11:45 PM) Squamous Epi [0-5] 0-5 (04/12/16 11:45 PM) Mucus [None Seen] Trace *NA* (04/12/16 11:45 PM) Microbiology Reports TEST:Urine Culture STATUS:Auth (Verified) BODY SITE: SOURCE:Urine COLLECTED DATE/TIME:04/12/16 10:48 PMFINAL REPORT>100,000 cfu/ml Mixed Gram positive organisms. Multiple colony types consistent with contaminated specimen. Please resubmit if clinically indicated. Immunizations No data available for this section Procedures Procedure Date Related Diagnosis Body Site Cholecystectomy Laparoscopic1 04/27/16 Tonsillectomy and adenoidectomy 2009 1auto-populated from documented surgical case Social History No data available for this section Assessment and Plan No data available for this section
--- OUTSIDE RECORDS SUMMARY | 2017-01-05 00:09 | XMS REPORT | Summary of Care ---
:1995 Author Organization [facility] Address [address] [place] [phone]- Care Team Providers Name Role Phone Rachana Ba Primary Care Physician Encounter Date(s): 04/27/16 - 04/27/[address] [address]- [facility] Final: Diseases of the digestive system complicating , first trimester Final: Calculus of gallbladder with chronic cholecystitis without obstruction Final: Obstruction of bile duct Discharge Diagnosis: Cholelithiasis Discharge Disposition: 01 Discharged to Home or Self Care Attending Physician: Davis Centeno MD Admitting Physician: Davis Centeno MD Vital Signs Most recent to oldest [Reference 1 2 3 Range]: Temperature Temporal Artery [36-38 37.1 DegC 36.8 DegC 37.0 DegC DegC] (04/27/16 6:23 PM) (04/27/16 4:56 PM) (04/27/16 4:16 PM) Heart Rate Monitored [60-100 bpm] 85 bpm 87 bpm 84 bpm (04/27/16 6:23 PM) (04/27/16 5:26 PM) (04/27/16 4:56 PM) Respiratory Rate [12-20 br/min] 16 br/min 16 br/min 16 br/min (04/27/16 6:23 PM) (04/27/16 5:26 PM) (04/27/16 4:56 PM) SpO2 99 % 99 % 100 % (04/27/16 5:26 PM) (04/27/16 4:16 PM) (04/27/16 3:40 PM) SpO2 Location Left hand Left hand (04/27/16 5:26 PM) (04/27/16 4:16 PM) Blood Pressure [90-130/60-90 mmHg] 109/61mmHg 109/52mmHg 105/58mmHg (04/27/16 6:23 PM) (04/27/16 5:26 PM) (04/27/16 4:56 PM) Most recent to oldest [Reference Range]: 1 2 3 Height/Length Measured 157.48 cm (04/27/16 10:47 AM) Height/Length Estimated 157.48 cm 157.48 cm (04/27/16 10:47 AM) (04/23/16 2:26 PM) Weight Estimated 59 kg 59 kg (04/27/16 10:47 AM) (04/23/16 2:26 PM) Weight Dosing 59 kg (04/27/16 10:47 AM) Weight Measured 59 kg (04/27/16 10:47 AM) BSA Measured 1.59 m2 (04/27/16 10:47 AM) BSA Estimated 1.61 m2 (04/27/16 10:47 AM) Body Mass Index Measured 23.79 kg/m2 (04/27/16 10:47 AM) Body Mass Index Estimated 23.79 kg/m2 (04/27/16 10:47 AM) Problem List Condition Effective Dates Status Health Status Informant Anxiety disorder(Confirmed) Active Kidney stones(Confirmed) Active Allergies, Adverse Reactions, Alerts Substance Reaction Severity Status cephalexin Acid reflux Active Medications EpiPen 2-Junior 0.3 mg injectable kit 0.3 mg, IM, ONETIME, # 1 kit(s), 0 Refill(s), Start Date: 05/18/16 13:16:00 CDT , Pharmacy: [facility] [id number] Start Date: 05/18/16 Status: OrderedFLUoxetine 30 mg, Oral, HS, 0 Refill(s), Start Date: 04/14/16 13:07:00 CDT Start Date: 04/14/16 Stop Date: 05/18/16 Status: DiscontinuedPercocet 7.5/325 oral tablet 1 tab(s), Oral, q4hr, [...] Refill(s), Start Date: 04/27/16 14:48:00 CDT, Pharmacy: [facility] [id number] Start Date: 04/27/16 Stop Date: 05/02/16 Status: Completed Results Patient Viewable Results Most recent to oldest [Reference 1 2 3 Range]: AN - Fi O2 96 % % 93 % % 89 % % (04/27/16 2:45 PM) (04/27/16 2:40 PM) (04/27/16 2:35 PM) Estimated Creatinine Clearance 101.15 mL/min (04/27/16 11:00 AM) Immunizations No data available for this section Procedures Procedure Date Related Diagnosis Body Site Cholecystectomy Laparoscopic1 04/27/16 Tonsillectomy and adenoidectomy 2009 1auto-populated from documented surgical case Social History No data available for this section Assessment and Plan No data available for this section
--- OUTSIDE RECORDS SUMMARY | 2017-01-05 00:09 | XMS REPORT | Summary of Care ---
:[address] [facility] Address [address] [place] [phone]- Care Team Providers Name Role Phone Rachana Ba Primary Care Physician Encounter Date(s): 05/01/16 - 05/01/[address] [address]- [facility] Final: Vomiting, unspecified Discharge Diagnosis: Acute vomiting Discharge Diagnosis: Common bile duct stone Discharge Disposition: Discharge/Transfer to [facility] In[facility] Attending Physician: Gem Dumont DO Admitting Physician: Gem Dumont DO Vital Signs Most recent to oldest 1 2 3 [Reference Range]: Temperature Temporal Artery 36.9 DegC [36-38 DegC] (05/01/16 2:30 PM) Temperature Temporal Artery 37.2 DegC [36.0-38.0 DegC] (05/01/16 12:41 PM) Heart Rate Monitored [60-100 89 bpm 95 bpm bpm] (05/01/16 2:30 PM) (05/01/16 12:41 PM) Respiratory Rate [12-20 16 br/min 16 br/min br/min] (05/01/16 2:30 PM) (05/01/16 12:41 PM) SpO2 99 % 99 % 99 % (05/01/16 2:30 PM) (05/01/16 2:00 PM) (05/01/16 12:41 PM) Blood Pressure [90-130/60-90 104/59mmHg 88/46mmHg 120/65mmHg mmHg] (05/01/16 2:30 PM) *LOW* (05/01/16 12:41 PM) (05/01/16 2:00 PM) Mean Arterial Pressure 69 mmHg 55 mmHg Monitor Measure (05/01/16 2:30 PM) (05/01/16 2:00 PM) Most recent to oldest [Reference Range]: 1 2 3 Weight Dosing 59.20 kg1 (05/01/16 12:45 PM) Weight Measured 59.2 kg (05/01/16 12:41 PM) 1Result Comment: This result was because the dosing weight was either not entered or it is>30 days old. This result is based off: Weight Measured May 01, 2016 12:41:00 CDT by Alexa Jeffries Problem List Condition Effective Dates Status Health Status Informant Anxiety disorder(Confirmed) Active Kidney stones(Confirmed) Active Allergies, Adverse Reactions, Alerts Substance Reaction Severity Status cephalexin Acid reflux Active Medications EpiPen 2-Junior 0.3 mg injectable kit 0.3 mg, IM, ONETIME, # 1 kit(s), 0 Refill(s), Start Date: 05/18/16 13:16:00 CDT , Pharmacy: [facility] [id number] Start Date: 05/18/16 Status: OrderedFLUoxetine 30 mg, [...] Refill(s), Start Date: 04/27/16 14:48:00 CDT, Pharmacy: [facility] [id number] Start Date: 04/27/16 Stop Date: 05/02/16 Status: Completed Results Patient Viewable Results Most recent to oldest [Reference Range]: 1 WBC [4.8-10.8 thou/mm3] 8.0 thou/mm3 (05/01/16 1:30 PM) RBC [4.20-5.40 Mil/mm3] 4.14 Mil/mm3 *LOW* (05/01/16 1:30 PM) Hgb [12.0-16.0 g/dL] 13.0 g/dL (05/01/16 1:30 PM) Hct [37.0-47.0 %] 38.8 % (05/01/16 1:30 PM) MCV [80.0-94.0 fL] 93.7 fL (05/01/16 1:30 PM) MCH [25.0-38.0 pg/cell] 31.4 pg/cell (05/01/16 1:30 PM) MCHC [31.0-37.0 g/dL] 33.5 g/dL (05/01/16 1:30 PM) RDW [1.0-48.0 fL] 44.2 fL (05/01/16 1:30 PM) Platelet [130-400 thou/mm3] 327 thou/mm3 (05/01/16 1:30 PM) Neutrophils % Auto [50.0-75.0 %] 62.2 % (05/01/16 1:30 PM) Immature Granulocyte Auto [0.1-2.0 %] 0.3 % (05/01/16 1:30 PM) Lymphocytes % Auto [15.0-41.0 %] 25.8 % (05/01/16 1:30 PM) Monocytes % Auto [2.0-10.0 %] 10.3 % *HI* (05/01/16 1:30 PM) Eosinophils % Auto [0.0-6.0 %] 1.1 % (05/01/16 1:30 PM) Basophil % Auto [0.0-1.0 %] 0.3 % (05/01/16 1:30 PM) Neutrophils Absolute [1.5-5.9 thou/mm3] 5.0 thou/mm3 (05/01/16 1:30 PM) Immature Gran Absolute [0.01-0.03 thou/mm3] 0.02 thou/mm3 (05/01/16 1:30 PM) Lymphocytes Absolute [1.5-4.0 thou/mm3] 2.1 thou/mm3 (05/01/16 1:30 PM) Monocytes Absolute [0.0-0.9 thou/mm3] 0.8 thou/mm3 (05/01/16 1:30 PM) Eosinophil Absolute [0.0-0.7 thou/mm3] 0.1 thou/mm3 (05/01/16 1:30 PM) Basophil Absolute [0.0-0.2 thou/mm3] 0.0 thou/mm3 (05/01/16 1:30 PM) Sodium Lvl [135-144 mEq/L] 138 mEq/L (05/01/16 1:30 PM) Potassium Lvl [3.3-4.8 mEq/L] 4.4 mEq/L (05/01/16 1:30 PM) Chloride Lvl [98-107 mEq/L] 100 mEq/L (05/01/16 1:30 PM) Bicarbonate Lvl [22-30 mmol/L] 29 mmol/L (05/01/16 1:30 PM) Anion Gap [10.0-20.0] 13.4 (05/01/16 1:30 PM) Glucose Lvl [70-108 mg/dL] 118 mg/dL *HI* (05/01/16 1:30 PM) BUN [7-21 mg/dL] 7 mg/dL (05/01/16 1:30 PM) Creatinine Lvl [0.50-1.20 mg/dL] 0.60 mg/dL (05/01/16 1:30 PM) BUN/Creat Ratio 11.7 *NA* (05/01/16 1:30 PM) eGFR AA [>=60] >60 (05/01/16 1:30 PM) eGFR SANDRA [>=60] >60 (05/01/16 1:30 PM) Calcium Lvl [8.6-10.2 mg/dL] 9.1 mg/dL (05/01/16 1:30 PM) Total Protein [6.4-8.3 g/dL] 7.1 g/dL (05/01/16 1:30 PM) Albumin Lvl [3.5-5.2 g/dL] 4.0 g/dL (05/01/16 1:30 PM) Globulin 3.1 *NA* (05/01/16 1:30 PM) A/G Ratio [0.9-1.8] 1.3 (05/01/16 1:30 PM) Bilirubin Total [0.1-1.0 mg/dL] 1.1 mg/dL *HI* (05/01/16 1:30 PM) Alkaline Phosphatase [39-129 unit/L] 166 unit/L *HI* (05/01/16 1:30 PM) AST [0-39 unit/L] 322 unit/L *HI* (05/01/16 1:30 PM) ALT [0-40 unit/L] 274 unit/L *HI* (05/01/16 1:30 PM) Lipase Lvl [13-60 unit/L] 20 unit/L (05/01/16 1:30 PM) Estimated Creatinine Clearance 116.32 mL/min (05/01/16 2:04 PM) UA Color [Yellow] Yellow (05/01/16 1:22 PM) Urine Clarity [Clear] Hazy *ABN* (05/01/16 1:22 PM) Specific [place] [1.001-1.020] 1.015 (05/01/16 1:22 PM) Urine pH [5.0-7.0] 8.0 *HI* (05/01/16 1:22 PM) Ketones [Negative] Negative (05/01/16 1:22 PM) Bilirubin [Negative] Negative (05/01/16 1:22 PM) Urine Protein [Negative] Negative (05/01/16 1:22 PM) Glucose [Negative] Negative (05/01/16 1:22 PM) Urine HGB [Negative] Negative (05/01/16 1:22 PM) Urobilinogen [< 2.0 mg/dL] <2.0 *NA* (05/01/16 1:22 PM) Nitrite [Negative] Negative (05/01/16 1:22 PM) Leuk Esterase [Negative] Trace *ABN* (05/01/16 1:22 PM) Urine WBC [0-5] 0-5 (05/01/16 1:22 PM) Urine RBC [0-2] None Seen (05/01/16 1:22 PM) Squamous Epi [0-5] 0-5 (05/01/16 1:22 PM) Mucus [None Seen] Trace *NA* (05/01/16 1:22 PM) UA Amorphous Sediment [None Seen] 3+ *ABN* (05/01/16 1:22 PM) Microbiology Reports TEST:Urine Culture STATUS:Auth (Verified) BODY SITE: SOURCE:Urine, Clean Catch COLLECTED DATE/TIME:05/01/16 1:21 PMFINAL REPORT60-70,000 cfu/ml Mixed Gram positive organisms. Multiple colony [...]
--- OUTSIDE RECORDS SUMMARY | 2017-01-05 00:10 | XMS REPORT | Summary of Care ---
:1995 Author Organization [facility] Address [address] [place] [address] Care Team Providers Name Role Phone Rachana Ba Primary Care Physician Encounter Date(s): 04/22/16 - 04/22/16 [facility], [address] [place], [place] [address] Discharge Disposition: 01 Discharged to Home or Self Care Attending Physician: Davis Centeno MD Referring Physician: Rachana Ba, PAC Vital Signs Most recent to oldest [Reference Range]: 1 Blood Pressure [90-130/60-90 mmHg] 118/64mmHg (04/22/16 2:36 PM) Mean Arterial Pressure, Cuff 82 mmHg (04/22/16 2:36 PM) Most recent to oldest [Reference Range]: 1 Height/Length Measured 158 cm (04/22/16 2:36 PM) Weight Dosing 58.80 kg1 (04/22/16 2:37 PM) Weight Measured 58.8 kg (04/22/16 2:36 PM) BSA Measured 1.59 m2 (04/22/16 2:36 PM) Body Mass Index Measured 23.55 kg/m2 (04/22/16 2:36 PM) 1Result Comment: This result was because the dosing weight was either not entered or it is>30 days old. This result is based off: Weight Measured April 22, 2016 14:36:00 CDT by Franklin Coon Problem List Condition Effective Dates Status Health Status Informant Anxiety disorder(Confirmed) Active Kidney stones(Confirmed) Active Allergies, Adverse Reactions, Alerts Substance Reaction Severity Status cephalexin Acid reflux Active Medications EpiPen 2-Junior 0.3 mg injectable kit 0.3 mg, IM, ONETIME, # 1 kit(s), 0 Refill(s), Start Date: 05/18/16 13:16:00 CDT , Pharmacy: [id number] Start Date: 05/18/16 Status: OrderedFLUoxetine 30 mg, [...] Refill(s), Start Date: 04/27/16 14:48:00 CDT, Pharmacy: [id number] Start Date: 04/27/16 Stop Date: 05/02/16 Status: [...]
--- OUTSIDE RECORDS SUMMARY | 2017-01-05 00:10 | XMS REPORT | Summary of Care ---
:1995 Author Organization [facility] Address [address] [place] [address]- Care Team Providers Name Role Phone Rachana Ba Primary Care Physician Encounter Date(s): 04/11/16 - 04/12/[address] [address] [facility] Final: Right lower quadrant pain Discharge Diagnosis: Acute right flank pain Discharge Disposition: 01 Discharged to Home or Self Care Attending Physician: RAHSID Miller Admitting Physician: RASHID Miller Vital Signs Most recent to oldest [Reference Range]: 1 2 Temperature Temporal Artery [36.5-38.0 DegC] 36.5 DegC (04/11/16 11:49 PM) Heart Rate Monitored [60-100 bpm] 53 bpm 68 bpm *LOW* (04/11/16 11:49 PM) (04/12/16 1:15 AM) Respiratory Rate [12-20 br/min] 17 br/min 18 br/min (04/12/16 1:15 AM) (04/11/16 11:49 PM) SpO2 98 % 97 % (04/12/16 1:15 AM) (04/11/16 11:49 PM) Blood Pressure [90-130/60-90 mmHg] 108/62mmHg 126/63mmHg (04/12/16 1:15 AM) (04/11/16 11:49 PM) Most recent to oldest [Reference Range]: 1 2 Weight Estimated 58 kg (04/11/16 11:49 PM) Weight Dosing 58.00 kg1 (04/11/16 11:53 PM) 1Result Comment: This result was because the dosing weight was either not entered or it is>30 days old. This result is based off: Weight Estimated April 11, 2016 23:49:00 CDT by Sindhu Martin RN Problem List Condition Effective Dates Status Health [...] Refill(s), Start Date: 04/27/16 14:48:00 CDT, Pharmacy: [facility] [id number] Start Date: 04/27/16 Stop Date: 05/02/16 Status: Completed Results Patient Viewable Results Most recent to oldest [Reference Range]: 1 WBC [4.8-10.8 thou/mm3] 10.5 thou/mm3 (04/12/16 12:03 AM) RBC [4.20-5.40 Mil/mm3] 4.10 Mil/mm3 *LOW* (04/12/16 12:03 AM) Hgb [12.0-16.0 g/dL] 12.8 g/dL (04/12/16 12:03 AM) Hct [37.0-47.0 %] 38.8 % (04/12/16:03 AM) MCV [80.0-94.0 fL] 94.6 fL *HI* (04/12/16 AM) MCH [25.0-38.0 pg/cell] 31.2 pg/cell (04/12/16 AM) MCHC [31.0-37.0 g/dL] 33.0 g/dL (04/12/16 AM) RDW [1.0-48.0 fL] 45.6 fL (04/12/16 AM) Platelet [130-400 thou/mm3] 367 thou/mm3 (04/12/16: AM) Neutrophils % Auto [50.0-75.0 %] 48.9 % *LOW* (04/12/16 AM) Immature Granulocyte Auto [0.1-2.0 %] 0.2 % (04/12/16 AM) Lymphocytes % Auto [15.0-41.0 %] 39.7 % (04/12/16: AM) Monocytes % Auto [2.0-10.0 %] 8.8 % (04/12/16: AM) Eosinophils % Auto [0.0-6.0 %] 2.0 % (04/12/16 AM) Basophil % Auto [0.0-1.0 %] 0.4 % (04/12/16: AM) Neutrophils Absolute [1.5-5.9 thou/mm3] 5.2 thou/mm3 (04/12/16 AM) Immature Gran Absolute [0.01-0.03 thou/mm3] 0.02 thou/mm3 (04/12/16: AM) Lymphocytes Absolute [1.5-4.0 thou/mm3] 4.2 thou/mm3 *HI* (04/12/16 AM) Monocytes Absolute [0.0-0.9 thou/mm3] 0.9 thou/mm3 (04/12/16:03 AM) Eosinophil Absolute [0.0-0.7 thou/mm3] 0.2 thou/mm3 (04/12/16 12:03 AM) Basophil Absolute [0.0-0.2 thou/mm3] 0.0 thou/mm3 (04/12/16 12:03 AM) Sodium Lvl [135-144 mEq/L] 141 mEq/L (04/12/16 12:03 AM) Potassium Lvl [3.3-4.8 mEq/L] 4.2 mEq/L (04/12/16 12:03 AM) Chloride Lvl [98-107 mEq/L] 103 mEq/L (04/12/1603 AM) Bicarbonate Lvl [22-30 mmol/L] 31 mmol/L *HI* (04/12/16:03 AM) Anion Gap [10.0-20.0] 11.2 (04/12/16:03 AM) Glucose Lvl [70-108 mg/dL] 103 mg/dL (04/12/16:03 AM) BUN [7-21 mg/dL] 12 mg/dL (04/12/16:03 AM) Creatinine Lvl [0.50-1.20 mg/dL] 0.70 mg/dL (04/12/16:03 AM) BUN/Creat Ratio 17.1 *NA* (04/12/16 12:03 AM) eGFR AA [>=60] >60 (04/12/16 12:03 AM) eGFR SANDRA [>=60] >60 (04/12/16:03 AM) Calcium Lvl [8.6-10.2 mg/dL] 9.5 mg/dL (04/12/16 12:03 AM) Total Protein [6.4-8.3 g/dL] 6.7 g/dL (04/12/16 12:03 AM) Albumin Lvl [3.5-5.2 g/dL] 4.1 g/dL (04/12/16 12:03 AM) Globulin 2.6 *NA* (04/12/16:03 AM) A/G Ratio [0.9-1.8] 1.6 (04/12/16 12:03 AM) Bilirubin Total [0.1-1.0 mg/dL] 0.5 mg/dL (04/12/16 12:03 AM) Alkaline Phosphatase [39-129 unit/L] 75 unit/L (5/23/16 12:03 AM) AST [0-39 unit/L] 26 unit/L (04/12/16 12:03 AM) ALT [0-40 unit/L] 23 unit/L (04/12/16 12:03 AM) UA Color [Yellow] Yellow (04/11/16 11:56 PM) Urine Clarity [Clear] Clear (04/11/16 11:56 PM) Specific [place] [1.001-1.020] 1.021 *HI* (04/11/16 11:56 PM) Urine pH [5.0-7.0] 5.5 (04/11/16 11:56 PM) Ketones [Negative] Negative (04/11/16 11:56 PM) Bilirubin [Negative] Negative (04/11/16 11:56 PM) Urine Protein [Negative] Negative (04/11/16 11:56 PM) Glucose [Negative] Negative (04/11/16 11:56 PM) Urine HGB [Negative] Negative (04/11/16 11:56 PM) Urobilinogen [< 2.0 mg/dL] <2.0 *NA* (04/11/16 11:56 PM) Nitrite [Negative] Negative (04/11/16 11:56 PM) Leuk Esterase [Negative] Negative (04/11/16 11:56 PM) Urine WBC [0-5] 6-10 *ABN* (04/11/16 11:56 PM) Urine RBC [0-2] 0-2 (04/11/16 11:56 PM) Squamous Epi [0-5] 0-5 (04/11/16 11:56 PM) Mucus [None Seen] Trace *NA* (04/11/16 11:56 PM) Sperm [None Seen] Trace *ABN* (04/11/16 11:56 PM) Urine [Negative] Negative (04/11/16 11:56 PM) UA HCG, Interp. First morning urine specimen is preferred. If the result does not correlate with clinical presentation, then either immediate serum quantitative HCG test or repeat qualitative test in forty-eight hour s recommended. The test is intended as an aid in diagnosing early . *Unknown* (04/11/16 11:56 PM) Microbiology Reports TEST:Urine Culture STATUS:Auth (Verified) BODY SITE: SOURCE:Urine, Clean Catch COLLECTED DATE/TIME:04/11/16 11:44 PMFINAL REPORT10-20,000 cfu/ml Mixed Gram positive organisms. Multiple colony [...]
--- OUTSIDE RECORDS SUMMARY | 2017-01-05 00:10 | XMS REPORT | Summary of Care ---
:1995 Author Organization [facility] Address [address] [place] [address] Care Team Providers Name Role Phone DamonstacyAshly Primary Care Physician Encounter Date(s): 12/17/16 - 12/17/16 [facility], [address] [place], [place] [address] Discharge Diagnosis: state, incidental Discharge Disposition: 01 Discharged to Home or Self Care Attending Physician: Nakita Marks MD Referring Physician: Nakita Marks MD Vital Signs Most recent to oldest [Reference Range]: 1 Peripheral Pulse Rate [60-100 bpm] 91 bpm (12/17/16 9:26 AM) Blood Pressure [90-130/60-90 mmHg] 111/69mmHg (12/17/16 9:26 AM) Weight Dosing 66.00 kg1 (12/17/16 9:28 AM) Weight Measured 66.0 kg (12/17/16 9:26 AM) 1Result Comment: This result was because the dosing weight was either not entered or it is>30 days old. This result is based off: Weight Measured December 17, 2016 09:26:00 DREDGE CAPTAIN by Nena Chan, Photoengraving Retoucher Problem List Condition Effective Dates Status Health [...] 0 Refill(s), Start Date: 11/16/16 17: 08:00 DREDGE CAPTAIN, Pharmacy: [facility] [id number] Start Date: 11/16/16 Stop Date: 11/27/16 Status: CompletedEpiPen 2-Junior 0.3 mg injectable kit 0.3 mg, IM, ONETIME, # 1 kit(s), 0 Refill(s), Start Date: 05/18/16 13:16:00 CDT , Pharmacy: [facility] [id number] Start Date: 05/18/16 Status: Orderedferrous sulfate 325 mg (65 mg elemental iron) oral delayed release tablet 1 tab(s), Oral, Daily, # 30 tab(s), 8 Refill(s), Start Date: 10/21/16 13:43:00 DREDGE CAPTAIN, Pharmacy: [facility] [id number] Start Date: 10/21/16 Status: OrderedFlagyl 500 mg oral tablet 1 tab(s), Oral, q12hr, # 14 tab(s), 0 Refill(s), Start Date: 11/05/16 11:10:00 DREDGE CAPTAIN, Pharmacy: [facility] [id number] Start Date: 11/05/16 Stop Date: 11/16/16 Status: CompletedFlonase 50 mcg/inh nasal spray 2 spray(s), Nasal, BID, # 16 gm, 0 Refill(s), Start Date: 10/26/16 16:24:00 DREDGE CAPTAIN , Pharmacy: [facility] [id number] Start Date: 10/26/16 Stop Date: 11/16/16 Status: CompletedFLUoxetine 30 mg, Oral, HS, 0 Refill(s), Start Date: 04/14/16 13:07:00 CDT Start Date: 04/14/16 Stop Date: 05/18/16 Status: DiscontinuedFLUoxetine 20 mg oral tablet 1 tab(s), Oral, Daily, # 30 tab(s), 2 Refill(s), Start Date: 08/25/16 14:00:00 CDT, Pharmacy: [facility] [id number] Start Date: 08/25/16 Stop Date: 12/03/16 Status: CompletedFLUoxetine 20 mg oral tablet 1 tab(s), Oral, Daily, # 30 tab(s), 2 Refill(s), Start Date: 12/03/16 10:33:18 DREDGE CAPTAIN, Pharmacy: [facility] [id number] Start Date: 12/03/16 Status: Orderedloratadine 10 mg oral tablet 1 tab(s), Oral, Daily, # 10 tab(s), 0 Refill(s), Start Date: 10/26/16 16:24:00 DREDGE CAPTAIN, Pharmacy: [facility] [id number] Start Date: 10/26/16 Stop Date: 11/16/16 Status: CompletedMacrobid 100 mg oral capsule 1 cap(s), Oral, BID, X 5 days, # 10 cap(s), 0 Refill(s), Start Date: 06/03/16 23 :02:00 CDT Start Date: 06/03/16 Stop Date: 06/08/16 Status: CompletedMacrobid 100 mg oral capsule 1 cap(s), Oral, BID, # 14 cap(s), 0 Refill(s), Start Date: 07/02/16 15:50:00 CDT , Pharmacy: [facility] [id number] Start Date: 07/02/16 Stop Date: 07/16/16 Status: DiscontinuedNIFEdipine 10 mg oral capsule 1 cap(s), Oral, q4hr, PRN other (see comment), # 90 cap(s), 0 Refill(s), Start Date: 11/16/16 17:08:00 DREDGE CAPTAIN, Pharmacy: [facility] [id number] Start Date: 11/16/16 Stop Date: 12/17/16 Status: DiscontinuedPercocet 7.5/325 oral tablet 1 tab(s), [...] 0 Refill(s), Start Date: 10/08/16 10:49: 00 DREDGE CAPTAIN, Pharmacy: [facility] [id number] Start Date: 10/08/16 Stop Date: 10/11/16 Status: [...] Refill(s), Start Date: 04/27/16 14:48:00 CDT, Pharmacy: [facility] [id number] Start Date: 04/27/16 Stop Date: 05/02/16 Status: CompletedZantac 150 oral tablet 1 tab(s), Oral, BID, # 60 tab(s), 1 Refill(s), Start Date: 11/05/16 10:53:00 DREDGE CAPTAIN , Pharmacy: [facility] [id number] Start Date: 11/05/16 Status: Ordered Results No [...]
--- OUTSIDE RECORDS SUMMARY | 2017-01-05 00:10 | XMS REPORT | Summary of Care ---
:1995 Author Organization [facility] Address [address] [place] [address]- Care Team Providers Name Role Phone MarcianobiancaRachana Primary Care Physician Encounter Date(s): 05/01/16 - 05/01/[address] [address] [facility] Final: Nausea with vomiting, unspecified Discharge Disposition: Discharged to Home or Self Care Attending Physician: Gem Dumont DO Admitting Physician: Gem Dumont DO Vital Signs No data available for this section Problem List Condition Effective Dates Status Health Status Informant Anxiety disorder(Confirmed) Active Kidney stones(Confirmed) Active Allergies, Adverse Reactions, Alerts Substance Reaction Severity Status cephalexin Acid reflux Active Medications EpiPen 2-Junior 0.3 mg injectable kit 0.3 mg, IM, ONETIME, # 1 kit(s), 0 Refill(s), Start Date: 05/18/16 13:16:00 CDT , Pharmacy: [facility] [id number] Start Date: 05/18/16 Status: OrderedFLUoxetine 30 mg, [...] Refill(s), Start Date: 04/27/16 14:48:00 CDT, Pharmacy: [facility] [id number] Start Date: 04/27/16 Stop Date: 05/02/16 Status: [...]
--- OUTSIDE RECORDS SUMMARY | 2017-01-05 00:10 | XMS REPORT | Summary of Care ---
:1995 Author Organization [facility] Address [address] [place] [address]- Care Team Providers Name Role Phone Rachana Ba Primary Care Physician Encounter Date(s): 04/11/16 - 04/12/[address] [address] [place] Final: Right lower quadrant pain Discharge Diagnosis: Acute right flank pain Discharge Disposition: 01 Discharged to Home or Self Care Attending Physician: RASHID Miller Admitting Physician: RASHID Miller Vital Signs [...] Refill(s), Start Date: 04/27/16 14:48:00 CDT, Pharmacy: [facility] [id number] Start Date: 04/27/16 Stop Date: 05/02/16 Status: [...] Clarity [Clear] Clear (04/11/16 11:56 PM) Specific [place] [1.001-1.020] 1.021 *HI* (04/11/16 11:56 PM) Urine [...]
--- OUTSIDE RECORDS SUMMARY | 2017-01-05 00:10 | XMS REPORT | Summary of Care ---
:1995 Author Organization [facility] Address [address] [place] [address]- Care Team Providers Name Role Phone Ashly Cooper Primary Care Physician Encounter Date(s): 12/10/16 - 12/10/[address] [address] Discharge Disposition: 01 Discharged to Home or Self Care Attending Physician: Ashly Cooper MD Admitting Physician: Ashly Cooper MD Vital Signs No data available for this [...] 0 Refill(s), Start Date: 11/16/16 17: 08:00 SAIL REPAIRER, Pharmacy: [facility] [id number] Start Date: 11/16/16 Stop Date: 11/27/16 Status: CompletedEpiPen 2-Junior 0.3 mg injectable kit 0.3 mg, IM, ONETIME, # 1 kit(s), 0 Refill(s), Start Date: 05/18/16 13:16:00 CDT , Pharmacy: [facility] [id number] Start Date: 05/18/16 Status: Orderedferrous sulfate 325 mg (65 mg elemental iron) oral delayed release tablet 1 tab(s), Oral, Daily, # 30 tab(s), 8 Refill(s), Start Date: 10/21/16 13:43:00 SAIL REPAIRER, Pharmacy: [facility] [id number] Start Date: 10/21/16 Status: OrderedFlagyl 500 mg oral tablet 1 tab(s), Oral, q12hr, # 14 tab(s), 0 Refill(s), Start Date: 11/05/16 11:10:00 SAIL REPAIRER, Pharmacy: [facility] [id number] Start Date: 11/05/16 Stop Date: 11/16/16 Status: CompletedFlonase 50 mcg/inh nasal spray 2 spray(s), Nasal, BID, # 16 gm, 0 Refill(s), Start Date: 10/26/16 16:24:00 SAIL REPAIRER , Pharmacy: [facility] [id number] Start Date: 10/26/16 Stop Date: 11/16/16 Status: CompletedFLUoxetine 30 mg, Oral, HS, 0 Refill(s), Start Date: 04/14/16 13:07:00 CDT Start Date: 04/14/16 Stop Date: 05/18/16 Status: DiscontinuedFLUoxetine 20 mg oral tablet 1 tab(s), Oral, Daily, # 30 tab(s), 2 Refill(s), Start Date: 08/25/16 14:00:00 CDT, Pharmacy: [facility] [id number] Start Date: 08/25/16 Stop Date: 12/03/16 Status: CompletedFLUoxetine 20 mg oral tablet 1 tab(s), Oral, Daily, # 30 tab(s), 2 Refill(s), Start Date: 12/03/16 10:33:18 SAIL REPAIRER, Pharmacy: [facility] [id number] Start Date: 12/03/16 Status: Orderedloratadine 10 mg oral tablet 1 tab(s), Oral, Daily, # 10 tab(s), 0 Refill(s), Start Date: 10/26/16 16:24:00 SAIL REPAIRER, Pharmacy: [facility] [id number] Start Date: 10/26/16 Stop Date: 11/16/16 Status: CompletedMacrobid 100 mg oral capsule 1 cap(s), Oral, BID, X 5 days, # 10 cap(s), 0 Refill(s), Start Date: 06/03/16 23 :02:00 CDT Start Date: 06/03/16 Stop Date: 06/08/16 Status: CompletedMacrobid 100 mg oral capsule 1 cap(s), Oral, BID, # 14 cap(s), 0 Refill(s), Start Date: 07/02/16 15:50:00 CDT , Pharmacy: [facility] [id number] Start Date: 07/02/16 Stop Date: 07/16/16 Status: DiscontinuedNIFEdipine 10 mg oral capsule 1 cap(s), Oral, q4hr, PRN other (see comment), # 90 cap(s), 0 Refill(s), Start Date: 11/16/16 17:08:00 SAIL REPAIRER, Pharmacy: [facility] [id number] Start Date: 11/16/16 Status: OrderedPercocet 7.5/325 oral [...] 0 Refill(s), Start Date: 10/08/16 10:49: 00 SAIL REPAIRER, Pharmacy: [facility] [id number] Start Date: 10/08/16 Stop Date: 10/11/16 Status: [...] Refill(s), Start Date: 04/27/16 14:48:00 CDT, Pharmacy: [facility] [id number] Start Date: 04/27/16 Stop Date: 05/02/16 Status: CompletedZantac 150 oral tablet 1 tab(s), Oral, BID, # 60 tab(s), 1 Refill(s), Start Date: 11/05/16 10:53:00 SAIL REPAIRER , Pharmacy: [facility] [address] Start Date: 11/05/16 Status: Ordered Results Patient Viewable Results Most recent to oldest [Reference Range]: 1 WBC [4.8-10.8 thou/mm3] 9.9 thou/mm3 (12/10/16 10:06 AM) RBC [4.20-5.40 Mil/mm3] 3.77 Mil/mm3 *LOW* (12/10/16 10:06 AM) Hgb [12.0-16.0 g/dL] 11.9 g/dL *LOW* (12/10/16 10:06 AM) Hct [37.0-47.0 %] 35.5 % *LOW* (12/10/16 10:06 AM) MCV [80.0-94.0 fL] 94.2 fL *HI* (12/10/16 10:06 AM) MCH [25.0-38.0 pg/cell] 31.6 pg/cell (12/10/16 10:06 AM) MCHC [31.0-37.0 g/dL] 33.5 g/dL (12/10/16 10:06 AM) RDW [1.0-48.0 fL] 44.8 fL (12/10/16 10:06 AM) Platelet [130-400 thou/mm3] 356 thou/mm3 (12/10/16 10:06 AM) Neutrophils % Auto [50.0-75.0 %] 69.6 % (12/10/16 10:06 AM) Immature Granulocyte Auto [0.1-2.0 %] 0.6 % (12/10/16 10:06 AM) Lymphocytes % Auto [15.0-41.0 %] 23.4 % (12/10/16 10:06 AM) Monocytes % Auto [2.0-10.0 %] 4.5 % (12/10/16 10:06 AM) Eosinophils % Auto [0.0-6.0 %] 1.7 % (12/10/16 10:06 AM) Basophil % Auto [0.0-1.0 %] 0.2 % (12/10/16 10:06 AM) Neutrophils Absolute [1.5-5.9 thou/mm3] 6.9 thou/mm3 *HI* (12/10/16 10:06 AM) Immature Gran Absolute [0.01-0.03 thou/mm3] 0.06 thou/mm3 *HI* (12/10/16 10:06 AM) Lymphocytes Absolute [1.5-4.0 thou/mm3] 2.3 thou/mm3 (12/10/16 10:06 AM) Monocytes Absolute [0.0-0.9 thou/mm3] 0.4 thou/mm3 (12/10/16 10:06 AM) Eosinophil Absolute [0.0-0.7 thou/mm3] 0.2 thou/mm3 (12/10/16 10:06 AM) Basophil Absolute [0.0-0.2 thou/mm3] 0.0 thou/mm3 (12/10/16 10:06 AM) Hep B Surf Ag [Non-Reactive] Non-Reactive (12/10/16 10:06 AM) HIV 1/2 Ab [Non-Reactive] Non-Reactive (12/10/16 10:06 AM) Rubella IgG [Immune] Testing was performed by the [employer] Rubella IgG assay. ([facility]) (12/10/16 10:06 AM) ABO/Rh O NEG *Unknown* (12/10/16 10:06 AM) Antibody Screen Positive (12/10/16 10:06 AM) Immunizations Given and Recorded Vaccine Date Status Refusal Reason tetanus/diphth/pertuss (Tdap) adult/adol 10/08/16 Given influenza virus vaccine, inactivated 09/10/16 Given Procedures Procedure Date Related Diagnosis Body Site Cholecystectomy Laparoscopic1 04/27/16 Tonsillectomy and adenoidectomy 2009 1auto-populated from documented surgical case Social History No data available for this section Assessment and Plan No data available for this section
--- OUTSIDE RECORDS SUMMARY | 2017-01-05 00:11 | XMS REPORT | Summary of Care ---
:1995 Author Organization [facility] Address [address] [place] [address]- Care Team Providers Name Role Phone MarcianobiancaRachana Primary Care Physician Encounter Date(s): 04/13/16 - 04/13/[address] [address] Final: Other cholelithiasis without obstruction Final: Other [...] Refill(s), Start Date: 04/27/16 14:48:00 CDT, Pharmacy: [facility] [id number] Start Date: 04/27/16 Stop Date: 05/02/16 Status: [...]
--- OUTSIDE RECORDS SUMMARY | 2017-01-05 00:11 | XMS REPORT | Summary of Care ---
:1995 Author Organization [facility] Address [address] [place] [address]- Care Team Providers Name Role Phone Rachana Ba Primary Care Physician Encounter Date(s): 04/12/16 - 04/13/[address] [address]- [facility] Discharge Diagnosis: Abdominal pain Discharge Disposition: Discharged [...] Refill(s), Start Date: 04/27/16 14:48:00 CDT, Pharmacy: [facility] [id number] Start Date: 04/27/16 Stop Date: 05/02/16 Status: [...] Clarity [Clear] Clear (04/12/16 11:45 PM) Specific [place] [1.001-1.020] 1.012 (04/12/16 11:45 PM) Urine pH [...]
--- OUTSIDE RECORDS SUMMARY | 2017-01-05 00:11 | XMS REPORT | Summary of Care ---
:1995 Author Organization [facility] Address [address] [place] [address]- Care Team Providers Name Role Phone Ashly Cooper Primary Care Physician Encounter Date(s): 12/14/16 - 12/14/[address] [address] [facility] Discharge Disposition: 01 Discharged to Home or Self Care Attending Physician: Ashly Cooper MD Admitting Physician: Ashly Cooper MD Vital Signs Most recent to oldest [Reference Range]: 1 2 Temperature Temporal Artery [36-38 DegC] 36.8 DegC (12/14/16 9:25 PM) Temperature Temporal Artery [36.0-38.0 DegC] 36.8 DegC (12/14/16 8:41 PM) Peripheral Pulse Rate [60-100 bpm] 69 bpm 80 bpm (12/14/16 9:25 PM) (12/14/16 8:41 PM) Respiratory Rate [12-20 br/min] 18 br/min 18 br/min (12/14/16 9:25 PM) (12/14/16 8:41 PM) Blood Pressure [90-130/60-90 mmHg] 113/60mmHg 102/59mmHg (12/14/16 9:25 PM) (12/14/16 8:41 PM) Mean Arterial Pressure, Cuff 73 mmHg (12/14/16 8:41 PM) Problem List Condition Effective Dates Status [...] 0 Refill(s), Start Date: 11/16/16 17: 08:00 LAB COORDINATOR, Pharmacy: [facility] [id number] Start Date: 11/16/16 Stop Date: 11/27/16 Status: CompletedEpiPen 2-Junior 0.3 mg injectable kit 0.3 mg, IM, ONETIME, # 1 kit(s), 0 Refill(s), Start Date: 05/18/16 13:16:00 CDT , Pharmacy: [facility] [id number] Start Date: 05/18/16 Status: Orderedferrous sulfate 325 mg (65 mg elemental iron) oral delayed release tablet 1 tab(s), Oral, Daily, # 30 tab(s), 8 Refill(s), Start Date: 10/21/16 13:43:00 LAB COORDINATOR, Pharmacy: [facility] [id number] Start Date: 10/21/16 Status: OrderedFlagyl 500 mg oral tablet 1 tab(s), Oral, q12hr, # 14 tab(s), 0 Refill(s), Start Date: 11/05/16 11:10:00 LAB COORDINATOR, Pharmacy: [facility] [id number] Start Date: 11/05/16 Stop Date: 11/16/16 Status: CompletedFlonase 50 mcg/inh nasal spray 2 spray(s), Nasal, BID, # 16 gm, 0 Refill(s), Start Date: 10/26/16 16:24:00 LAB COORDINATOR , Pharmacy: [facility] [id number] Start Date: 10/26/16 Stop Date: 11/16/16 Status: CompletedFLUoxetine 30 mg, Oral, HS, 0 Refill(s), Start Date: 04/14/16 13:07:00 CDT Start Date: 04/14/16 Stop Date: 05/18/16 Status: DiscontinuedFLUoxetine 20 mg oral tablet 1 tab(s), Oral, Daily, # 30 tab(s), 2 Refill(s), Start Date: 08/25/16 14:00:00 CDT, Pharmacy: [facility] [id number] Start Date: 08/25/16 Stop Date: 12/03/16 Status: CompletedFLUoxetine 20 mg oral tablet 1 tab(s), Oral, Daily, # 30 tab(s), 2 Refill(s), Start Date: 12/03/16 10:33:18 LAB COORDINATOR, Pharmacy: [facility] [id number] Start Date: 12/03/16 Status: Orderedloratadine 10 mg oral tablet 1 tab(s), Oral, Daily, # 10 tab(s), 0 Refill(s), Start Date: 10/26/16 16:24:00 LAB COORDINATOR, Pharmacy: [facility] [id number] Start Date: 10/26/16 Stop Date: 11/16/16 Status: CompletedMacrobid 100 mg oral capsule 1 cap(s), Oral, BID, X 5 days, # 10 cap(s), 0 Refill(s), Start Date: 06/03/16 23 :02:00 CDT Start Date: 06/03/16 Stop Date: 06/08/16 Status: CompletedMacrobid 100 mg oral capsule 1 cap(s), Oral, BID, # 14 cap(s), 0 Refill(s), Start Date: 07/02/16 15:50:00 CDT , Pharmacy: [facility] [id number] Start Date: 07/02/16 Stop Date: 07/16/16 Status: DiscontinuedNIFEdipine 10 mg oral capsule 1 cap(s), Oral, q4hr, PRN other (see comment), # 90 cap(s), 0 Refill(s), Start Date: 11/16/16 17:08:00 LAB COORDINATOR, Pharmacy: [facility] [id number] Start Date: 11/16/16 Status: OrderedPercocet 7.5/325 oral [...] 0 Refill(s), Start Date: 10/08/16 10:49: 00 LAB COORDINATOR, Pharmacy: [facility] [id number] Start Date: 10/08/16 Stop Date: 10/11/16 Status: [...] Refill(s), Start Date: 04/27/16 14:48:00 CDT, Pharmacy: [facility] [id number] Start Date: 04/27/16 Stop Date: 05/02/16 Status: CompletedZantac 150 oral tablet 1 tab(s), Oral, BID, # 60 tab(s), 1 Refill(s), Start Date: 11/05/16 10:53:00 LAB COORDINATOR , Pharmacy: [facility] [id number] Start Date: 11/05/16 Status: Ordered Results No [...]
--- OUTSIDE RECORDS SUMMARY | 2017-01-05 00:11 | XMS REPORT | Summary of Care ---
:1995 Author Organization [facility] Address [address] [place] [address] Care Team Providers Name Role Phone Damonstacy Ashly Raza Primary Care Physician Encounter Date(s): 12/15/16 - 12/15/16 [facility], [address] [place], [place] [address] Discharge Disposition: 01 Discharged to Home or Self Care Attending Physician: Danita Leal MD Referring Physician: Danita Leal MD Vital Signs Most recent to oldest [Reference Range]: 1 Peripheral Pulse Rate [60-100 bpm] 90 bpm (12/15/16 4:25 PM) Blood Pressure [90-130/60-90 mmHg] 125/74mmHg (12/15/16 4:25 PM) Mean Arterial Pressure, Cuff 91 mmHg (12/15/16 4:25 PM) Weight Dosing 65.40 kg1 (12/15/16 4:26 PM) Weight Measured 65.4 kg (12/15/16 4:25 PM) 1Result Comment: This result was because the dosing weight was either not entered or it is>30 days old. This result is based off: Weight Measured December 15, 2016 16:25:00 OPTICAL INSTRUMENT ASSEMBLER by Dolores Gray CRT Problem List Condition Effective Dates Status Health [...] 0 Refill(s), Start Date: 11/16/16 17: 08:00 OPTICAL INSTRUMENT ASSEMBLER, Pharmacy: [facility] [id number] Start Date: 11/16/16 Stop Date: 11/27/16 Status: CompletedEpiPen 2-Junior 0.3 mg injectable kit 0.3 mg, IM, ONETIME, # 1 kit(s), 0 Refill(s), Start Date: 05/18/16 13:16:00 CDT , Pharmacy: [facility] [id number] Start Date: 05/18/16 Status: Orderedferrous sulfate 325 mg (65 mg elemental iron) oral delayed release tablet 1 tab(s), Oral, Daily, # 30 tab(s), 8 Refill(s), Start Date: 10/21/16 13:43:00 OPTICAL INSTRUMENT ASSEMBLER, Pharmacy: [facility] [id number] Start Date: 10/21/16 Status: OrderedFlagyl 500 mg oral tablet 1 tab(s), Oral, q12hr, # 14 tab(s), 0 Refill(s), Start Date: 11/05/16 11:10:00 OPTICAL INSTRUMENT ASSEMBLER, Pharmacy: [facility] [id number] Start Date: 11/05/16 Stop Date: 11/16/16 Status: CompletedFlonase 50 mcg/inh nasal spray 2 spray(s), Nasal, BID, # 16 gm, 0 Refill(s), Start Date: 10/26/16 16:24:00 OPTICAL INSTRUMENT ASSEMBLER , Pharmacy: [facility] [id number] Start Date: 10/26/16 Stop Date: 11/16/16 Status: CompletedFLUoxetine 30 mg, Oral, HS, 0 Refill(s), Start Date: 04/14/16 13:07:00 CDT Start Date: 04/14/16 Stop Date: 05/18/16 Status: DiscontinuedFLUoxetine 20 mg oral tablet 1 tab(s), Oral, Daily, # 30 tab(s), 2 Refill(s), Start Date: 08/25/16 14:00:00 CDT, Pharmacy: [facility] [id number] Start Date: 08/25/16 Stop Date: 12/03/16 Status: CompletedFLUoxetine 20 mg oral tablet 1 tab(s), Oral, Daily, # 30 tab(s), 2 Refill(s), Start Date: 12/03/16 10:33:18 OPTICAL INSTRUMENT ASSEMBLER, [facility] [id number] Start Date: 12/03/16 Status: Orderedloratadine 10 mg oral tablet 1 tab(s), Oral, Daily, # 10 tab(s), 0 Refill(s), Start Date: 10/26/16 16:24:00 OPTICAL INSTRUMENT ASSEMBLER, [id number] Start Date: 10/26/16 Stop Date: 11/16/16 Status: CompletedMacrobid 100 mg oral capsule 1 cap(s), Oral, BID, X 5 days, # 10 cap(s), 0 Refill(s), Start Date: 06/03/16 23 :02:00 CDT Start Date: 06/03/16 Stop Date: 06/08/16 Status: CompletedMacrobid 100 mg oral capsule 1 cap(s), Oral, BID, # 14 cap(s), 0 Refill(s), Start Date: 07/02/16 15:50:00 CDT , [id number] Start Date: 07/02/16 Stop Date: 07/16/16 Status: DiscontinuedNIFEdipine 10 mg oral capsule 1 cap(s), Oral, q4hr, PRN other (see comment), # 90 cap(s), 0 Refill(s), Start Date: 11/16/16 17:08:00 OPTICAL INSTRUMENT ASSEMBLER, [facility] [address] Start Date: 11/16/16 Status: OrderedPercocet 7.5/325 oral [...] 0 Refill(s), Start Date: 10/08/16 10:49: 00 OPTICAL INSTRUMENT ASSEMBLER, Pharmacy: [facility] [id number] Start Date: 10/08/16 Stop Date: 10/11/16 Status: [...] Refill(s), Start Date: 04/27/16 14:48:00 CDT, Pharmacy: [facility] [id number] Start Date: 04/27/16 Stop Date: 05/02/16 Status: CompletedZantac 150 oral tablet 1 tab(s), Oral, BID, # 60 tab(s), 1 Refill(s), Start Date: 11/05/16 10:53:00 OPTICAL INSTRUMENT ASSEMBLER , Pharmacy: [facility] [id number] Start Date: 11/05/16 Status: Ordered Results No [...]
--- OUTSIDE RECORDS SUMMARY | 2017-01-05 00:12 | XMS REPORT | Summary of Care ---
:1995 Author Organization [facility] Address [address] [place] [id number]- Care Team Providers Name Role Phone Ashly Cooper Primary Care Physician Encounter Date(s): 12/10/16 - 12/11/[address] [address]- [facility] Discharge Disposition: 01 Discharged to Home or Self Care Attending Physician: Nakita Marks MD Admitting Physician: Nakita Marks MD Vital Signs Most recent to oldest 1 2 3 [Reference Range]: Temperature Temporal Artery 36.8 DegC [36-38 DegC] (12/11/16 7:15 AM) Heart Rate Monitored [60-100 72 bpm 74 bpm bpm] (12/11/16 7:15 AM) (12/10/16 10:00 PM) Respiratory Rate [12-20 18 br/min 16 br/min 16 br/min br/min] (12/11/16 7:15 AM) (12/11/16 4:20 AM) (12/10/16 5:36 PM) SpO2 96 % (12/10/16 10:00 PM) Blood Pressure [90-130/60-90 121/64mmHg 110/62mmHg 112/64mmHg mmHg] (12/11/16 7:15 AM) (12/11/16 4:20 AM) (12/10/16 10:00 PM) Mean Arterial Pressure, Cuff 83 mmHg 78 mmHg 80 mmHg (12/11/16 7:15 AM) (12/11/16 4:20 AM) (12/10/16 10:00 PM) Problem List Condition Effective Dates Status [...] 0 Refill(s), Start Date: 11/16/16 17: 08:00 GAS EXAMINER, Pharmacy: [facility] [id number] Start Date: 11/16/16 Stop Date: 11/27/16 Status: CompletedEpiPen 2-Junior 0.3 mg injectable kit 0.3 mg, IM, ONETIME, # 1 kit(s), 0 Refill(s), Start Date: 05/18/16 13:16:00 CDT , Pharmacy: [facility] [id number] Start Date: 05/18/16 Status: Orderedferrous sulfate 325 mg (65 mg elemental iron) oral delayed release tablet 1 tab(s), Oral, Daily, # 30 tab(s), 8 Refill(s), Start Date: 10/21/16 13:43:00 GAS EXAMINER, Pharmacy: [facility] [id number] Start Date: 10/21/16 Status: OrderedFlagyl 500 mg oral tablet 1 tab(s), Oral, q12hr, # 14 tab(s), 0 Refill(s), Start Date: 11/05/16 11:10:00 GAS EXAMINER, Pharmacy: [facility] [id number] Start Date: 11/05/16 Stop Date: 11/16/16 Status: CompletedFlonase 50 mcg/inh nasal spray 2 spray(s), Nasal, BID, # 16 gm, 0 Refill(s), Start Date: 10/26/16 16:24:00 GAS EXAMINER , Pharmacy: [facility] [id number] Start Date: 10/26/16 Stop Date: 11/16/16 Status: CompletedFLUoxetine 30 mg, Oral, HS, 0 Refill(s), Start Date: 04/14/16 13:07:00 CDT Start Date: 04/14/16 Stop Date: 05/18/16 Status: DiscontinuedFLUoxetine 20 mg oral tablet 1 tab(s), Oral, Daily, # 30 tab(s), 2 Refill(s), Start Date: 08/25/16 14:00:00 CDT, Pharmacy: [facility] [id number] Start Date: 08/25/16 Stop Date: 12/03/16 Status: CompletedFLUoxetine 20 mg oral tablet 1 tab(s), Oral, Daily, # 30 tab(s), 2 Refill(s), Start Date: 12/03/16 10:33:18 GAS EXAMINER, [facility] [address] Start Date: 12/03/16 Status: Orderedloratadine 10 mg oral tablet 1 tab(s), Oral, Daily, # 10 tab(s), 0 Refill(s), Start Date: 10/26/16 16:24:00 GAS EXAMINER, Pharmacy: [facility] [id number] Start Date: 10/26/16 Stop Date: 11/16/16 Status: CompletedMacrobid 100 mg oral capsule 1 cap(s), Oral, BID, X 5 days, # 10 cap(s), 0 Refill(s), Start Date: 06/03/16 23 :02:00 CDT Start Date: 06/03/16 Stop Date: 06/08/16 Status: CompletedMacrobid 100 mg oral capsule 1 cap(s), Oral, BID, # 14 cap(s), 0 Refill(s), Start Date: 07/02/16 15:50:00 CDT , Pharmacy: [facility] [id number] Start Date: 07/02/16 Stop Date: 07/16/16 Status: DiscontinuedNIFEdipine 10 mg oral capsule 1 cap(s), Oral, q4hr, PRN other (see comment), # 90 cap(s), 0 Refill(s), Start Date: 11/16/16 17:08:00 GAS EXAMINER, Pharmacy: [facility] [id number] Start Date: 11/16/16 Status: OrderedPercocet 7.5/325 oral [...] 0 Refill(s), Start Date: 10/08/16 10:49: 00 GAS EXAMINER, Pharmacy: [facility] [id number] Start Date: 10/08/16 Stop Date: 10/11/16 Status: [...] Refill(s), Start Date: 04/27/16 14:48:00 CDT, Pharmacy: [facility] [id number] Start Date: 04/27/16 Stop Date: 05/02/16 Status: CompletedZantac 150 oral tablet 1 tab(s), Oral, BID, # 60 tab(s), 1 Refill(s), Start Date: 11/05/16 10:53:00 GAS EXAMINER , Pharmacy: [facility] [id number] Start Date: 11/05/16 Status: Ordered Results Patient Viewable Results Most recent to oldest [Reference Range]: 1 Rupture of Membranes [Negative] Negative1 (12/10/16 5:34 PM) UA Color Yellow *NA* (12/10/16 5:34 PM) Urine Clarity Clear *NA* (12/10/16 5:34 PM) Specific [place]sgood [1.000-1.060] 1.012 (12/10/16 5:34 PM) Urine pH [5-8] 7 (12/10/16 5:34 PM) Ketones Negative (12/10/16 5:34 PM) Bilirubin [Negative] Negative (12/10/16 5:34 PM) Urine Protein [Negative] Negative (12/10/16 5:34 PM) Glucose [Negative] Negative (12/10/16 5:34 PM) Urine HGB [Negative] 1+ *ABN* (12/10/16 5:34 PM) Urobilinogen 4.0 *ABN* (12/10/16 5:34 PM) Nitrite [Negative] Negative (12/10/16 5:34 PM) Leuk Esterase [Negative] Negative (12/10/16 5:34 PM) UA Ascorbic Acid [Negative] Negative (12/10/16 5:34 PM) Urine WBC [0-5] 0-5 (12/10/16 5:34 PM) Urine RBC [0-2] 0-2 (12/10/16 5:34 PM) Squamous Epi [0-5] 0-5 (12/10/16 5:34 PM) Mucus Trace (12/10/16 5:34 PM) 1Result Comment: Verified Results called to and read back by Radha Luna at 2016 5:54:14 PM GAS EXAMINER by [facility] Immunizations Given and Recorded Vaccine Date Status Refusal Reason tetanus/diphth/pertuss (Tdap) adult/adol 10/08/16 Given influenza virus vaccine, inactivated 09/10/16 Given Procedures Procedure Date Related Diagnosis Body Site Cholecystectomy Laparoscopic1 04/27/16 Tonsillectomy and adenoidectomy 2009 1auto-populated from documented surgical case Social History No data available for this section Assessment and Plan No data available for this section
--- OUTSIDE RECORDS SUMMARY | 2017-01-05 00:12 | XMS REPORT | Summary of Care ---
:1995 Author Organization [facility] Address [address] [place] [phone]- Care Team Providers Name Role Phone Ashly Cooper Primary Care Physician Encounter Date(s): 12/19/16 - 12/22/[address] [address]- [facility] Discharge Diagnosis: Encounter for full-term uncomplicated delivery Discharge Disposition: 01 Discharged to Home or Self Care Attending Physician: Ana Laura Campuzano DO Admitting Physician: Ana Laura Campuzano DO Vital Signs Most recent to oldest 1 2 3 [Reference Range]: Temperature Temporal Artery 36.1 DegC 37.4 DegC 37.8 DegC [36-38 DegC] (12/22/16 7:00 AM) (12/22/16 4:00 AM) (12/21/16 8:00 PM) Peripheral Pulse Rate [60-100 86 bpm bpm] (12/19/16 11:34 PM) Heart Rate Monitored [60-100 58 bpm 54 bpm 60 bpm bpm] *LOW* *LOW* (12/21/16 8:00 PM) (12/22/16 7:00 AM) (12/22/16 4:00 AM) Respiratory Rate [12-20 17 br/min 18 br/min 18 br/min br/min] (12/22/16 7:00 AM) (12/21/16 4:00 PM) (12/21/16 11:00 AM) SpO2 97 % 99 % 98 % (12/22/16 7:00 AM) (12/21/16 8:00 PM) (12/21/16 4:00 AM) SpO2 Location Left hand Right hand Right hand (12/21/16 8:00 PM) (12/21/16 4:00 AM) (12/21/16 12:00 AM) Blood Pressure [90-130/60-90 106/56mmHg 120/71mmHg 120/64mmHg mmHg] (12/22/16 7:00 AM) (12/22/16 4:00 AM) (12/21/16 8:00 PM) Mean Arterial Pressure, Cuff 73 mmHg 87 mmHg 83 mmHg (12/22/16 7:00 AM) (12/22/16 4:00 AM) (12/21/16 8:00 PM) Blood Pressure Location Right arm Right arm Left arm (12/22/16 4:00 AM) (12/21/16 8:00 PM) (12/21/16 4:00 AM) Most recent to oldest [Reference Range]: 1 2 3 Height/Length Measured 157.48 cm (12/19/16 11:34 PM) Weight Dosing 66 kg (12/19/16 11:34 PM) Weight Measured 66 kg (12/19/16 11:34 PM) Pre- Weight 59.7 kg (12/19/16 11:34 PM) Cumulative Weight Gain 6 kg (12/19/16 11:34 PM) Body Mass Index Measured 26.61 kg/m2 (12/19/16 11:34 PM) Problem List Condition Effective Dates Status [...] 0 Refill(s), Start Date: 11/16/16 17: 08:00 MANUFACTURER REPRESENTATIVE, Pharmacy: [facility] [id number] Start Date: 11/16/16 Stop Date: 11/27/16 Status: Completedbenzocaine 20% topical spray 1 spray(s), Topical, As Indicated, PRN soreness, 0 Refill(s), Start Date: 9:13:00 MANUFACTURER REPRESENTATIVE Start Date: 12/22/16 Status: Ordereddocusate sodium 100 mg oral capsule 1 cap(s), Oral, BIDMEALS, # 60 cap(s), 0 Refill(s), Start Date: 12/22/16 9:13: 00 MANUFACTURER REPRESENTATIVE, Pharmacy: [facility] [id number] Start Date: 12/22/16 Status: OrderedEpiPen 2-Junior 0.3 mg injectable kit 0.3 mg, IM, ONETIME, # 1 kit(s), 0 Refill(s), Start Date: 05/18/16 13:16:00 CDT , Pharmacy: [facility] [address]31 Start Date: 05/18/16 Status: Orderedferrous sulfate 325 mg (65 mg elemental iron) oral delayed release tablet 1 tab(s), Oral, Daily, # 30 tab(s), 8 Refill(s), Start Date: 10/21/16 13:43:00 MANUFACTURER REPRESENTATIVE, Pharmacy: [facility] [id number] Start Date: 10/21/16 Status: OrderedFlagyl 500 mg oral tablet 1 tab(s), Oral, q12hr, # 14 tab(s), 0 Refill(s), Start Date: 11/05/16 11:10:00 MANUFACTURER REPRESENTATIVE, Pharmacy: [facility] 11862 Start Date: 11/05/16 Stop Date: 11/16/16 Status: CompletedFlonase 50 mcg/inh nasal spray 2 spray(s), Nasal, BID, # 16 gm, 0 Refill(s), Start Date: 10/26/16 16:24:00 MANUFACTURER REPRESENTATIVE , Pharmacy: [facility] [id number] Start Date: 10/26/16 Stop Date: 11/16/16 Status: CompletedFLUoxetine 30 mg, Oral, HS, 0 Refill(s), Start Date: 04/14/16 13:07:00 CDT Start Date: 04/14/16 Stop Date: 05/18/16 Status: DiscontinuedFLUoxetine 20 mg oral tablet 1 tab(s), Oral, Daily, # 30 tab(s), 2 Refill(s), Start Date: 08/25/16 14:00:00 CDT, Pharmacy: [facility] [id number] Start Date: 08/25/16 Stop Date: 12/03/16 Status: CompletedFLUoxetine 20 mg oral tablet 1 tab(s), Oral, Daily, # 30 tab(s), 2 Refill(s), Start Date: 12/03/16 10:33:18 MANUFACTURER REPRESENTATIVE, Pharmacy: [facility] [id number] Start Date: 12/03/16 Status: Orderedibuprofen 800 mg oral tablet 1 tab(s), Oral, q6hr, PRN pain mild 1-3, # 30 tab(s), 0 Refill(s), Start Date: 12/22/16 9:13:00 MANUFACTURER REPRESENTATIVE, [facility] [address] Start Date: 12/22/16 Status: Orderedloratadine 10 mg oral tablet 1 tab(s), Oral, Daily, # 10 tab(s), 0 Refill(s), Start Date: 10/26/16 16:24:00 MANUFACTURER REPRESENTATIVE, Pharmacy: [facility] [id number] Start Date: 10/26/16 Stop Date: 11/16/16 Status: CompletedMacrobid 100 mg oral capsule 1 cap(s), Oral, BID, X 5 days, # 10 cap(s), 0 Refill(s), Start Date: 06/03/16 23 :02:00 CDT Start Date: 06/03/16 Stop Date: 06/08/16 Status: CompletedMacrobid 100 mg oral capsule 1 cap(s), Oral, BID, # 14 cap(s), 0 Refill(s), Start Date: 07/02/16 15:50:00 CDT , [facility] [address] Start Date: 07/02/16 Stop Date: 07/16/16 Status: DiscontinuedNIFEdipine 10 mg oral capsule 1 cap(s), Oral, q4hr, PRN other (see comment), # 90 cap(s), 0 Refill(s), Start Date: 11/16/16 17:08:00 MANUFACTURER REPRESENTATIVE, Pharmacy: [facility] [id number] Start Date: 11/16/16 Stop Date: 12/17/16 Status: [...] 0 Refill(s), Start Date: 10/08/16 10:49: 00 MANUFACTURER REPRESENTATIVE, Pharmacy: [facility] [id number] Start Date: 10/08/16 Stop Date: 10/11/16 Status: CompletedtraZODone 50 mg oral tablet 1 tab(s), Oral, HS, PRN for insomnia, # 30 tab(s), 0 Refill(s), Start Date: 13:07:00 CDT Start Date: 04/14/16 Stop Date: 05/18/16 Status: Discontinuedtriamcinolone 0.1% topical cream 1 rosario, Topical, TID, PRN abrasions, 0 Refill(s), Start Date: 12/22/16 9:13:00 MANUFACTURER REPRESENTATIVE Start Date: 12/22/16 Status: OrderedTylenol with Codeine #3 oral tablet 1 tab(s), Oral, q4hr interval, PRN pain moderate 4-7, X 5 days, # 30 tab(s), 0 Refill(s), Start Date: 04/27/16 14:48:00 CDT, Pharmacy: [facility] [id number] Start Date: 04/27/16 Stop Date: 05/02/16 Status: CompletedZantac 150 oral tablet 1 tab(s), Oral, BID, # 60 tab(s), 1 Refill(s), Start Date: 11/05/16 10:53:00 MANUFACTURER REPRESENTATIVE , Pharmacy: [facility] [id number] Start Date: 11/05/16 Status: Ordered Results Patient Viewable Results Most recent to oldest [Reference Range]: 1 WBC [4.8-10.8 thou/mm3] 10.0 thou/mm3 (12/20/16 1:05 AM) RBC [4.20-5.40 Mil/mm3] 3.65 Mil/mm3 *LOW* (12/20/16 1:05 AM) Hgb [12.0-16.0 g/dL] 11.7 g/dL *LOW* (12/20/16 1:05 AM) Hct [37.0-47.0 %] 34.0 % *LOW* (12/20/16 1:05 AM) MCV [80.0-94.0 fL] 93.2 fL (12/20/16 1:05 AM) MCH [25.0-38.0 pg/cell] 32.1 pg/cell (12/20/16 1:05 AM) MCHC [31.0-37.0 g/dL] 34.4 g/dL (12/20/16 1:05 AM) RDW [1.0-48.0 fL] 44.4 fL (12/20/16 1:05 AM) Platelet [130-400 thou/mm3] 307 thou/mm3 (12/20/16 1:05 AM) Neutrophils % Auto [50.0-75.0 %] 69.6 % (12/20/16 1:05 AM) Immature Granulocyte Auto [0.1-2.0 %] 0.7 % (12/20/16 1:05 AM) Lymphocytes % Auto [15.0-41.0 %] 23.4 % (12/20/16 1:05 AM) Monocytes % Auto [2.0-10.0 %] 5.3 % (12/20/16 1:05 AM) Eosinophils % Auto [0.0-6.0 %] 0.9 % (12/20/16 1:05 AM) Basophil % Auto [0.0-1.0 %] 0.1 % (12/20/16 1:05 AM) Neutrophils Absolute [1.5-5.9 thou/mm3] 7.0 thou/mm3 *HI* (12/20/16 1:05 AM) Immature Gran Absolute [0.01-0.03 thou/mm3] 0.07 thou/mm3 *HI* (12/20/16 1:05 AM) Lymphocytes Absolute [1.5-4.0 thou/mm3] 2.3 thou/mm3 (12/20/16 1:05 AM) Monocytes Absolute [0.0-0.9 thou/mm3] 0.5 thou/mm3 (12/20/16 1:05 AM) Eosinophil Absolute [0.0-0.7 thou/mm3] 0.1 thou/mm3 (12/20/16 1:05 AM) Basophil Absolute [0.0-0.2 thou/mm3] 0.0 thou/mm3 (12/20/16 1:05 AM) Rupture of Membranes [Negative] Positive1 *ABN* (12/19/16 11:34 PM) Estimated Creatinine Clearance 129.98 mL/min (12/19/16 11:51 PM) ABO/Rh O NEG *Unknown* (12/20/16 1:05 AM) Antibody Screen Positive (12/20/16 1:05 AM) 1Result Comment: Verified Results called to and read back by Darcy at 2016 11:41:16 PM MANUFACTURER REPRESENTATIVE by jeremie Immunizations Vaccine Date Refusal Reason tetanus/diphth/pertuss (Tdap) adult/adol 10/08/16 influenza virus vaccine, inactivated 09/10/16 Procedures Procedure Date Related Diagnosis Body Site Cholecystectomy Laparoscopic1 04/27/16 Tonsillectomy and adenoidectomy 2009 1auto-populated from documented surgical case Social History No data available for this section Assessment and Plan No data available for this section
--- NOTE | 2017-01-05 00:35 | ERNOTE ---
Medical Problem HPI - General Chief Complaint: Fever Time Seen by Provider: 01/04/17 23:59 Source: patient Exam Limitations: no limitations - Immun/Allergies/Home Medications Immunizations: IMMUNIZATION HX Immunizations Up to Date Yes History of Influenza Vaccine Yes Hx Pneumococcal Vaccination No Allergies/Adverse Reactions: Allergies bee venom (honey bee) Allergy (Mild, Verified 10/16/16 01:13) Swelling (Other) cephalexin Allergy (Verified 10/16/16 01:13) Home Medications: HOME MEDICATIONS FLUoxetine HCL [Prozac] 20 mg PO DAILY 08/31/16 [Last Taken 11/07/16] Vit #108/Iron/FA [ One Tablet] 1 each PO DAILY 08/31/16 [Last Taken 11/07/16] Ferrous Sulfate [Iron] 1 tab PO DAILY 11/08/16 [Last Taken 11/07/16] - History of Present History Narrative: Pt states she had a fever last week and ran a low tempurature. this week she doesn't have a fever but still is not feeling well Timing: constant Severity: mild, moderate Review of Systems - Review of Systems Constitutional: Present: See HPI, recent illness, fever EYE: Present: no symptoms reported ENT: Present: See HPI Respiratory: Absent: shortness of breath, cough Cardiology: Absent: chest pain, palpitations Gastrointestinal/Abdominal: Present: See HPI Genitourinary: Present: See HPI Musculoskeletal: Present: no symptoms reported Skin: Present: no symptoms reported Neurological: Present: no symptoms reported Endocrine: Present: no symptoms reported Hematologic/Lymphatic: Present: no symptoms reported Psych: Present: no symptoms reported - Patient's Past Medical History Patient History - Medical: Depression, Kidney stone Patient History - Cardiac/Respiratory: No pertinent hx Patient History - Cancer: No Hx of Cancer Patient History - Surgical Procedures: Cholecystectomy, T & A Patient History - Other: None LMP (Calendar): 04/02/16 - Social History Living Situations: spouse Abuse History: No History of abuse Psych History: Hx of Depression Smoking Status: Former smoker Do you dip or chew tobacco: No Alcohol Use: none Drug Use: none - Immunizations Immunizations Up to Date: Yes Hx Pneumococcal Vaccination: No History of Influenza Vaccine: Yes Physical Exam - Physical Exam General Appearance: Present: wd/wn, alert, no apparent distress Eye Exam: Normal inspection: bilateral Ears, Nose, Throat: Present: normal ENT inspection Neck: Present: normal inspection, nontender Respiratory: Present: no respiratory distress, normal breath sounds, no accessory muscle use, chest nontender, lungs clear Cardiovascular/Chest: Present: regular rate, rhythm, no murmur, normal peripheral pulses Gastrointestinal/Abdominal: Present: abnormal bowel sounds - hyperactive Back Exam: Present: normal inspection, no CVA tenderness Extremity Exam: Present: normal inspection, non-tender, no edema Neurological Exam: Present: alert, oriented, normal mood/affect Skin Exam: Present: normal color, warm/dry ED Progress - Vital Signs Patient's Vital Signs:: I have reviewed the patient's vital signs. Vital Signs: Vital Signs 01/04/17 23:42 Temperature 35.9 C L Pulse Rate 78 Respiratory 14 Rate Blood Pressure 120/69 O2 Sat by Pulse 97 Oximetry - Progress/Reassessment Chief Complaint: Fever Departure - Departure Clinical Impression: Gastroenteritis Disposition: Home self-care Condition: Good Instructions: Viral Gastroenteritis, Adult, [id number] Additional Instructions: See your regular doctor if not improving in 5-7 days
[2017-01-05 01:42] VITALS: BP 110/64
== END 2017-01-05 01:37 | disposition home or self-care (01) ==
LOC: ER 23:28
DX: A08.4 Viral intestinal infection, unspecified (principal)

== ENCOUNTER 2017-02-18 22:35 | Emergency (ER) | payer OTHER ==
--- NOTE | 2017-02-19 00:13 | ERNOTE ---
ENT HPI Date of Service: 02/19/17 Presenting Symptoms: dental pain Time Seen by Provider: 02/19/17 00:10 Source: patient, family - Immun/Allergies/Home Medications Immunizations: IMMUNIZATION HX Immunizations Up to Date No History of Influenza Vaccine No Hx Pneumococcal Vaccination No Allergies/Adverse Reactions: Allergies Allergy/AdvReac Type Severity Reaction Status Date / Time venom-honey bee Allergy Mild Swelling Verified 10/16/16 01:13 [bee venom (honey bee)] (Other) cephalexin Allergy Verified 10/16/16 01:13 Home Medications: HOME MEDICATIONS FLUoxetine HCL [Prozac] 20 mg PO DAILY 08/31/16 [Last Taken 11/07/16] Vit #108/Iron/FA [ One Tablet] 1 each PO DAILY 08/31/16 [Last Taken 11/07/16] Ferrous Sulfate [Iron] 1 tab PO DAILY 11/08/16 [Last Taken 11/07/16] Penicillin V Potassium [Pen-Vee K] 500 mg PO Q8H #30 tab 02/19/17 [Last Taken Unknown] - History of Present Illness Narrative: PT WITH RIGHT LOWER WISDOM TOOTH DISCOMFORT FOR 1 WEEK. HAS NOT BEEN ABLE TO SEE A DENTIST. NO FEVERS OR FACIAL SWELLING. SHE HAS NOT BEEN TREATING THE TOOTH WITH ANY INTERVENTION. SHE HAS NOT HAD A HX OF DENTAL PROBLEMS. Review of Systems - Review of Systems Constitutional: Present: See HPI EYE: Present: no symptoms reported ENT: Present: no symptoms reported Respiratory: Present: no symptoms reported Cardiology: Present: no symptoms reported Psych: Present: no symptoms reported All Other Systems: All systems neg except as marked - Patient's Past Medical History Patient History - Medical: Depression, Kidney stone Patient History - Cardiac/Respiratory: No pertinent hx Patient History - Cancer: No Hx of Cancer Patient History - Surgical Procedures: Cholecystectomy, T & A Patient History - Other: None LMP (Calendar): 04/02/16 - Social History Living Situations: significant other Abuse History: No History of abuse Psych History: Hx of Depression Smoking Status: Never smoker Alcohol Use: none Drug Use: none - Immunizations Immunizations Up to Date: No Hx Pneumococcal Vaccination: No History of Influenza Vaccine: No Physical Exam - Physical Exam General Appearance: Present: wd/wn, alert, no apparent distress Eye Exam: Normal inspection: bilateral, PERRL: bilateral, EOMI: bilateral Ears, Nose, Throat: Present: normal ENT inspection, other - EXAM OF HER TEETH REVEAL APPARENT GOOD DENTAL HYGIENE. SHE DOES HAVE ERUPTED THIRD MOLARS ON RIGHT UPPER AND LOWER JAW. THE LOWER 3RD MOLAR HAS SOME OVERGROWING GUM TISSUE THAT IS SL ERYTHEMATOUS BUT NO SIGN OF CARIES OR LOCAL SWELLING OR BLEEDING. THE 3RD LOWER MOLAR DOES LOOK CROWED AND SL. OUT OF ALIGNMENT WITH HER OTHER TEETH ON THE LOWER JAW. THERE IS NO CHEEK OR FACIAL SWELLING. ED Progress - Vital Signs Vital Signs: Vital Signs 02/18/17 22:40 Temperature 36.5 C Pulse Rate 83 Respiratory 18 Rate Blood Pressure 151/71 O2 Sat by Pulse 97 Oximetry - Progress/Reassessment Chief Complaint: Dental Problem Plan - Plan Plan: I EXPLAINED THAT I AM NOT A DENTIST AND SHE WAS GOING TO HAVE TO SEE A DENTIST REGARDING HER WISDOM TOOTH PROBLEM. I DO NOT THINK SHE SHE HAS AN ABSCESS BUT BEACUSE OF THE GUM ERYTHEMA I OFFERED A TRIAL OF ANTIBIOTIC AND LOCAL CARE. Departure Clinical Impression: Tooth ache - Departure Disposition: Home Follow Up Needed Condition: Good Instructions: Dental Care and Dentist Visits Additional Instructions: YOU HAVE RIGHT THIRD MOLAR PAIN WHICH MAY JUST BE FROM CROWDING. TRIAL OF PENICILLIN DIRECTED. TRY WAR OR COOLD COMPRESSES TO THAT TOOTH. TYELNOL OR IBUPROFEN FOR PAIN IF NEEDED. BE SURE TO GET SEEN BY YOUR DENTIST FOR DEFINITIVE DENTAL CARE. SOMETIMES AMBUSOL OR 2-3 DROPS OF OIL OF CLOVE ON A COTTON BALL HELD TO THE SORE TOOTH CAN HELP. Referrals: Rachana Ba, PAC [Primary Care Provider] - Prescriptions: Penicillin V Potassium [Pen-Vee K] 500 mg PO Q8H #30 tab
--- OUTSIDE RECORDS SUMMARY | 2017-02-19 00:16 | XMS REPORT | Continuity of Care Document ---
:1995 Author Organization [facility] ([facility]) Address [address] [place] [address] Phone [phone] Care Team Providers Name Role Phone Rachana Ba Primary Care Provider [phone] Source Comments This disclosure is being made pursuant to the Care Everywhere program, applicable federal and state laws, and may not contain all informaitonavailable regarding this patient.[facility] ([facility] Active Allergies and Adverse Reactions Allergen Noted [...] Currently Estimated Date of Delivery Comments Yes Social History Tobacco Use Types Packs/Day Years Used Date Former Smoker Cigarettes Quit: 02/24/2016 Smokeless Tobacco: Never Used Alcohol Use Drinks/Week oz/Week Comments No Occasional Last Filed Vital Signs Vital Sign Reading Time Taken Blood Pressure 123/66 11/10/2016 8:47 AM SOCIAL SERVICES SPECIALIST Pulse 99 11/10/2016 8:47 AM SOCIAL SERVICES SPECIALIST Temperature 37.1 C (98.8 F) 11/10/2016 8:47 AM SOCIAL SERVICES SPECIALIST Respiratory Rate 16 11/10/2016 8:47 AM SOCIAL SERVICES SPECIALIST Height 1.575 m (5' 2") 11/08/2016 12:20 PM SOCIAL SERVICES SPECIALIST Weight 66.679 kg (147 lb) 11/08/2016 12:20 PM SOCIAL SERVICES SPECIALIST Body Mass Index 26.88 11/08/2016 12:20 PM SOCIAL SERVICES SPECIALIST Oxygen Saturation 96% 11/10/2016 8:47 AM SOCIAL SERVICES SPECIALIST Plan of Care Health Maintenance Due Date Last Done Comments Hepatitis B Vaccine (1 of 3 - Primary Series) 1993 HPV Vaccine (1 of 3 - Female/Unknown 3 Dose Series) 2004 Tdap Vaccine 2004 Cervical Cancer Screening 2011 Lipid Disorder Screening 2011 MMR Vaccine 2011 Td Vaccine 2011 Influenza Vaccine: Seasonal (#1) 06/21/2016 Results from Last 3 Months Not on file
[2017-02-19] MEDS ORDERED: PENICILLIN V POTASSIUM 250 MG TABLET PO ONE (00:27)
[2017-02-19] MEDS ORDERED: PENICILLIN V POTASSIUM 250 MG TABLET ONE (00:30)
[2017-02-19 00:49] VITALS: BP 115/56
== END 2017-02-19 00:34 | disposition home or self-care (01) ==
LOC: ER 22:35
DX: K08.89 Other specified disorders of teeth and supporting structures (principal); Z87.442 Personal history of urinary calculi

== ENCOUNTER 2017-03-06 18:13 | Emergency (ER) | payer OTHER ==
--- OUTSIDE RECORDS SUMMARY | 2017-03-06 19:21 | XMS REPORT | Continuity of Care Document ---
:1995 Author Organization [facility] ([facility]) Address [address] [place] [address] Phone [phone] Care Team Providers Name Role Phone Rachana Ba Primary Care Provider [phone] Source Comments This disclosure is being made pursuant to the Care Everywhere program, applicable federal and state laws, and may not contain all informaitonavailable regarding this patient.[facility] ([facility]) Active Allergies and Adverse Reactions Allergen Noted [...] Taken Blood Pressure 123/66 11/10/2016 8:47 AM YARN CLEANER Pulse 99 11/10/2016 8:47 AM YARN CLEANER Temperature 37.1 C (98.8 F) 11/10/2016 8:47 AM YARN CLEANER Respiratory Rate 16 11/10/2016 8:47 AM YARN CLEANER Height 1.575 m (5' 2") 11/08/2016 12:20 PM YARN CLEANER Weight 66.679 kg (147 lb) 11/08/2016 12:20 PM YARN CLEANER Body Mass Index 26.88 11/08/2016 12:20 PM YARN CLEANER Oxygen Saturation 96% 11/10/2016 8:47 AM YARN CLEANER Plan of Care Health Maintenance Due Date [...]
--- NOTE | 2017-03-06 19:49 | ERNOTE ---
Medical Problem HPI - Narrative Date of Service: 03/06/17 - General Chief Complaint: General Assessment Time Seen by Provider: 03/06/17 19:15 Source: patient, RN notes reviewed Exam Limitations: no limitations - Immun/Allergies/Home Medications Immunizations: IMMUNIZATION HX Immunizations Up to Date Yes History of Influenza Vaccine Yes Hx Pneumococcal Vaccination No Allergies/Adverse Reactions: Allergies venom-honey bee [bee venom (honey bee)] Allergy (Mild, Verified 03/06/17 19:08) Swelling (Other) cephalexin Allergy (Verified 03/06/17 19:08) Home Medications: HOME MEDICATIONS FLUoxetine HCL [Prozac] 20 mg PO DAILY 08/31/16 [Last Taken 11/07/16] Vit #108/Iron/FA [ One Tablet] 1 each PO DAILY 08/31/16 [Last Taken 11/07/16] Ferrous Sulfate [Iron] 1 tab PO DAILY 11/08/16 [Last Taken 11/07/16] Dicloxacillin Sodium 500 mg PO TID #30 capsule 03/06/17 [Last Taken Unknown] - History of Present History Narrative: 21 y/o female ambulatory to the ED for right breast pain that she first noticed yesterday and has worsened today. She noticed she had a fever this afternoon but has not taken anything for it. She has an 11 week old son and is breast feeding. Review of Systems - Review of Systems Constitutional: Present: fever, fatigue, malaise. Absent: recent illness, chills EYE: Present: no symptoms reported ENT: Present: no symptoms reported Respiratory: Absent: shortness of breath, cough Cardiology: Absent: palpitations, syncope Gastrointestinal/Abdominal: Absent: nausea, vomiting Genitourinary: Present: no symptoms reported Musculoskeletal: Absent: muscle pain, joint pain Skin: Present: change in color. Absent: rash, lesions Neurological: Absent: headache, dizziness/light-headedness Endocrine: Present: no symptoms reported Hematologic/Lymphatic: Present: no symptoms reported Psych: Present: no symptoms reported - Patient's Past Medical History Patient History - Medical: Depression, Kidney stone Patient History - Cardiac/Respiratory: No pertinent hx Patient History - Cancer: No Hx of Cancer Patient History - Surgical Procedures: Cholecystectomy, T & A Patient History - Other: None - Family History Mother Family History - Medical: No pertinent hx Father Family History - Medical: Diabetes Type 1 Aunt Family History - Cancer: Cervical, Endometrial - Social History Living Situations: spouse Abuse History: No History of abuse Psych History: Hx of Depression Smoking Status: Never smoker Alcohol Use: none Drug Use: none - Immunizations Immunizations Up to Date: Yes Hx Pneumococcal Vaccination: No History of Influenza Vaccine: Yes Physical Exam - Physical Exam General Appearance: Present: wd/wn, alert, no apparent distress Neck: Present: normal inspection, nontender, supple Respiratory: Present: no respiratory distress, normal breath sounds, no accessory muscle use, lungs clear Cardiovascular/Chest: Present: regular rate, rhythm, no murmur, normal peripheral pulses Gastrointestinal/Abdominal: Present: normal bowel sounds, nontender, nondistended, soft Neurological Exam: Present: alert, oriented, normal mood/affect Skin Exam: Present: warm/dry, other - mild erythema present right breast, 8 o' clock just lateral to [place] ED Progress - Vital Signs Patient's Vital Signs:: I have reviewed the patient's vital signs. Vital Signs: Vital Signs 03/06/17 19:04 Temperature 37.9 C H Pulse Rate 105 H Respiratory 16 Rate Blood Pressure 119/67 O2 Sat by Pulse 99 Oximetry - Progress/Reassessment Chief Complaint: General Assessment Progress:: Unchanged Departure - Departure Clinical Impression: Mastitis, acute Disposition: Home Follow Up Needed Condition: Good Instructions: Mastitis, [id number] Prescriptions: Dicloxacillin Sodium 500 mg PO TID #30 capsule
[2017-03-06] MEDS ORDERED: CLINDAMYCIN HCL 150 MG CAPSULE PO ONE (20:01)
[2017-03-06] MEDS ORDERED: ACETAMINOPHEN 325 MG TABLET PO ONE (20:01)
[2017-03-06] MEDS ORDERED: CLINDAMYCIN HCL 150 MG CAPSULE ONE (20:04)
[2017-03-06] MEDS ORDERED: ACETAMINOPHEN 325 MG TABLET ONE (20:05)
[2017-03-06 20:14] VITALS: BP 123/68
== END 2017-03-06 20:12 | disposition home or self-care (01) ==
LOC: ER 18:13
DX: N61.0 Mastitis without abscess (principal); Z87.442 Personal history of urinary calculi